=== PATIENT | female | born 1960 | race Caucasian/White ===

== ENCOUNTER 2017-03-31 20:16 | Inpatient (IN) ==
--- NOTE | 2017-03-31 20:21 | Emergency Department Note ---
Disposition Clinical Impression: Femur fracture Disposition: Admitted As Inpatient Condition: Fair General Adult HPI - General Chief complaint: ED Fall Stated complaint: knee pain Time Seen by Provider: 03/31/17 20:19 - Related Data Home Medications Medication Instructions Recorded Confirmed Citalopram [CeleXA] 20 mg PO QPM 01/05/15 03/31/17 Ondansetron HCl [Zofran] 4 mg PO Q4-6H PRN 01/05/15 03/31/17 Oxycodone HCl 10 mg PO Q4-6H PRN 01/05/15 03/31/17 Clopidogrel [Plavix] 75 mg PO QAM 02/19/15 03/31/17 Gabapentin [Neurontin] 600 mg PO TID 02/19/15 03/31/17 Tizanidine [Zanaflex] 4 mg PO Q8H 02/19/15 03/31/17 Zolpidem [Ambien] 10 mg PO HS 03/31/17 03/31/17 metFORMIN [Glucophage] 500 mg PO BIDWM 03/31/17 03/31/17 Allergies Allergy/AdvReac Type Severity Reaction Status Date / Time No Known Allergies Allergy Verified 04/01/17 01:33 EDT Past Medical History - Past Medical History Medical history: Reports: diabetes, myocardial infarction, hypertension Surgical history: Reports: cholecystectomy, knee replacement, angioplasty/stent , other Psychiatric history: Reports: anxiety, depression - Social History Smoking Status: Never smoker Smokeless Tobacco Status: No Alcohol use: Reports: none Drug use: Reports: none Course Vital Signs Temperature 98.7 F 03/31/17 20:20 Pulse Rate 85 03/31/17 20:20 Respiratory Rate 19 03/31/17 20:20 Blood Pressure 185/103 03/31/17 20:20 O2 Sat by Pulse Oximetry 100 03/31/17 20:20 Temperature 98.3 F 04/01/17 06:38 Pulse Rate 87 04/01/17 06:38 Respiratory Rate 16 04/01/17 06:38 Blood Pressure 126/78 04/01/17 06:38 O2 Sat by Pulse Oximetry 98 04/01/17 06:38 Oxygen Delivery Oxygen Delivery Room Air Medical Decision Making - Lab Data Result diagrams: 04/01/17 01:01 EST 04/01/17 01:01 EST Lab Results 03/31/17 Range/Units 22:34 PT 11.5 (9.4-12.1) Seconds INR 1.1 Attestation Statement - Attestation Attestation: I examined this patient and my medical decision-making was reviewed with the Resident Physician. I agree with the documented findings, disposition and treatment plan as described except to the extent set forth below. [id number] time provided Patient arrives by EMS. She sustained a mechanical fall. She now complains of left knee pain. She is uncomfortable appearing on exam 21:33: Knee image sent to the orthopedist nutrition consultant per his request. He recommends admission to the medicine service with orthopedic consultation.
--- NOTE | 2017-03-31 20:39 | Emergency Department Note ---
Disposition Clinical Impression: Femur fracture Qualifiers: Encounter type: initial encounter Femur location: distal Fracture type: closed Fracture morphology: unspecified fracture morphology Laterality: left Qualified Code(s): S72.402A - Unspecified fracture of lower end of left femur, initial encounter for closed fracture Disposition: Admitted As Inpatient Condition: Fair Referrals: Nikhil Felix DO [Primary Care Provider] - Forms: ED Satisfaction Letter Time of Disposition: 22:11 General Adult HPI - General Chief complaint: ED Fall Stated complaint: knee pain Time Seen by Provider: 03/31/17 20:19 Source: patient, EMS Mode of arrival: EMS Limitations: no limitations Nursing Notes Reviewed: Yes Vital Signs Reviewed: Yes - History of Present Illness HPI Narrative: 56-year-old female presents to the emergency department via EMS after a fall. This was a witnessed fall. Her shoes got stuck on a flat surface and she fell forward twisting her left knee and landing on the left side of her body. She did not loose consciousness. She did not hit her head. Patient denies any dizziness, chest pain, shortness of breath. Her left lower extremity is externally rotated and shortened. She states she has pain from mid left femur down to midcalf. She denies any other trauma or pain at this time. She does state she had a total knee replacement on the left side in 1993. Pain Scale: 8 - Related Data Home Medications Medication Instructions Recorded Confirmed Aspirin Enteric Coated [Aspirin EC] 81 mg PO QAM 01/05/15 01/05/15 Citalopram [CeleXA] 20 mg PO QPM 01/05/15 01/05/15 Clopidogrel [Plavix] 75 mg PO QAM 01/05/15 01/05/15 Gabapentin [Neurontin] 600 mg PO TID 01/05/15 01/05/15 Metoprolol Succinate [Toprol Xl] 75 mg PO BID 01/05/15 01/05/15 Nitroglycerin [Nitrostat] 0.4 mg SL AD 01/05/15 01/05/15 Omeprazole [PriLOSEC] 20 mg PO QAM 01/05/15 01/05/15 Ondansetron HCl [Zofran] 4 mg PO Q4-6H PRN 01/05/15 01/05/15 Oxycodone HCl 10 mg PO Q4-6H PRN 01/05/15 01/05/15 Pantoprazole Sodium [Protonix] 40 mg PO QAM 01/05/15 01/05/15 Tizanidine [Zanaflex] 4 mg PO Q8H 01/05/15 01/05/15 Trazodone HCl 150 mg PO HS 01/05/15 01/05/15 Aspirin Enteric Coated [Aspirin EC] 81 mg PO QAM 02/19/15 02/19/15 Clopidogrel [Plavix] 75 mg PO QAM 02/19/15 02/19/15 Gabapentin [Neurontin] 600 mg PO TID 02/19/15 02/19/15 Nitroglycerin [Nitrostat] 0.4 mg SL AD PRN 02/19/15 02/19/15 Ondansetron [Zofran] 4 mg PO Q4-6H PRN 02/19/15 02/19/15 Oxycodone HCl/Acetaminophen 1 - 2 each PO Q12H PRN 02/19/15 02/19/15 [Percocet 5-325 mg Tablet] Pantoprazole Sodium 40 mg PO QAM 02/19/15 02/19/15 Simvastatin [Zocor] 40 mg PO QPM 02/19/15 02/19/15 Tizanidine [Zanaflex] 4 mg PO Q8H 02/19/15 02/19/15 traZODone [TraZODone] 150 mg PO 02/19/15 02/19/15 Previous Rx's Medication Instructions Recorded Promethazine [Phenergan] 25 mg PO Q6HR PRN #30 tablet 01/07/15 Allergies Allergy/AdvReac Type Severity Reaction Status Date / Time amitriptyline Allergy Seizure Verified 01/05/15 14:51 bupropion [From Wellbutrin] Allergy Seizure Verified 01/05/15 14:51 Penicillins Allergy Itching Verified 01/05/15 14:51 tramadol Allergy Seizure Verified 01/05/15 14:51 All systems ED: reviewed and negative except as stated. Constitutional: Denies: fever, chills, weakness Eyes: Reports: as per HPI ENT ED: Reports: as per HPI Cardiovascular: Denies: chest pain, palpitations, dyspnea on exertion Respiratory: Denies: cough, dyspnea, wheezes Gastrointestinal: Denies: abdominal pain, nausea, vomiting Genitourinary: Reports: as per HPI Musculoskeletal: Reports: other (Left knee and left mid thigh pain) Integumentary: Reports: abrasion (Left knee, superficial) Neurological: Reports: as per HPI Psychiatric: Reports: as per HPI Endocrine: Reports: as per HPI Hematological/Lymphatic: Reports: as per HPI Allergic/Immunologic: Reports: as per HPI Past Medical History - Past Medical History Attestation: Yes The following information was validated with the patient. Medical history: Reports: diabetes, myocardial infarction, hypertension Surgical history: Reports: cholecystectomy, knee replacement, angioplasty/stent , other Psychiatric history: Reports: anxiety, depression WRITER history: Reports: bilateral tubal ligation - Social History Smoking Status: Never smoker Smokeless Tobacco Status: No Alcohol use: Reports: none Drug use: Reports: none Physical Exam - General Limitations: no limitations General appearance: alert, in no apparent distress - Head Head exam: atraumatic, normocephalic, normal inspection - Eye Eye exam: Present: normal appearance. Absent: scleral icterus, conjunctival injection - Neck Neck exam: Present: normal inspection, full ROM. Absent: tenderness - Chest Chest inspection: Present: normal inspection, symmetric chest wall rise. Absent : tenderness, rash - Respiratory Respiratory exam: Present: normal lung sounds bilaterally. Absent: respiratory distress, wheezes - Cardiovascular Cardiovascular exam: Present: regular rate, normal rhythm, normal heart sounds - Abdominal Exam Abdominal exam: Present: soft, Non-Tender. Absent: distention, guarding, rebound - Extremities Exam Extremities exam: Present: other (Left lower extremity is externally rotated and shortened. Patient has tenderness over the mid femoral area and over the greater trochanter. Patient also has severe tenderness throughout the entire left knee. Sensation intact bilateral lower extremities. Distal pulses 2+ bilateral lower extremities. Muscle strength unable to assess due to pain. No crepitus noted. Superficial abrasion noted over the left knee.) - Neurological Exam Neurological exam: Present: alert, oriented X3 - Psychiatric Psychiatric exam: Present: normal affect, normal mood - Skin Skin exam: Present: warm, normal color Course Course Narrative: 56-year-old female presenting with fall and left lower extremity pain. Patient has an externally rotated and shortened left lower extremity. Pain to palpation on greater trochanter of the left hip along with mid femur and the entire left knee. We will obtain plain films and her eye pain control at this time. Disposition pending results. Concern for dislocation or fracture at this time. Patient alert and oriented 3 in the room and agrees to this plan. Patient's vital signs are stable at this time. - Reevaluation(s) Reevaluation #1: Patient's x-ray shows a distal femur fracture 100% displaced. Spoke to the orthopedic physician special effects person who agrees to be consult it on the patient. We will admit the patient to hospitalist service with consult to orthopedics for surgery tomorrow. We will obtain basic lab work for admission. Patient's leg will be reduced and then splinted in the emergency department. Pain control at this time. Patient is alert and oriented 3 in the room with stable vital signs at this time. She agrees with the plan. Time: 21:56 Reevaluation #2: Dr. Galvan the hospitalist accepts the patient at this time. Patient's alert and oriented 3 and room stable vital signs. Friends are at bedside. Time: 22:10 Vital Signs Temperature 98.7 F 03/31/17 20:20 Pulse Rate 85 03/31/17 20:20 Respiratory Rate 19 03/31/17 20:20 Blood Pressure 185/103 03/31/17 20:20 O2 Sat by Pulse Oximetry 100 03/31/17 20:20 Temperature 98.7 F 03/31/17 20:20 Pulse Rate 85 03/31/17 20:20 Respiratory Rate 19 03/31/17 20:20 Blood Pressure 185/103 03/31/17 20:20 O2 Sat by Pulse Oximetry 100 03/31/17 20:20 Oxygen Delivery Oxygen Delivery Room Air Procedures - Orthopedic Fracture Reduction Fracture #1 Consent Obtained: verbal consent Time Out Performed: Yes Side: left Fracture Reduction Location: femur ASA Classification: CLASS II-Mild systemic disease Analgesia: other (IV analgesia) Technique: traction/counter-traction, traction splint Post Reduction X-rays Demonstrate: acceptable reduction Post-reduction neuro exam: intact Post-reduction vascular exam: intact Splint Applied: Yes Patient Tolerated Procedure: well Additional Comments: Custom made splint applied by EDT
[2017-03-31] MEDS ORDERED: *HR* Morphine 2 MG/ML SYRINGE IVP ONE (20:40)
[2017-03-31] MEDS ORDERED: *HR* HYDROmorphone (PF) 1 MG/ML SYRINGE IVP ONE ×2 (21:21→21:57)
[2017-03-31] MEDS ORDERED: Ondansetron 4 MG/2 ML VIAL IVP ONE (21:56)
[2017-03-31 22:45] LABS: INR 1.1; Prothrombin Time 11.5 Seconds (9.4-12.1)
[2017-03-31] MEDS ORDERED: D5% in Water 1,000 ML IVC PRN (23:51)
[2017-03-31] MEDS ORDERED: *HR* Dextrose 50 % in Water (Syg) 50 ML SYRINGE IVP PRN (23:51)
[2017-03-31] MEDS ORDERED: Dextrose Gel 15 GM PO PRN ×2 (23:51)
[2017-03-31] MEDS: Insulin LISPRO 300 UNITS/3 ML VIAL SQ SCH (23:58)
[2017-04-01] MEDS: *HR* HYDROmorphone (PF) 1 MG/ML SYRINGE IVP PRN ×6 (00:32→20:28)
[2017-04-01 01:05] LABS: Basophils % 0.2 %; Eosinophils # 0.1 K/mcL (0.0-0.6); Eosinophils % 0.4 %; Hematocrit 34.2 % (35.3-44.9); Hemoglobin 11.1 g/dL (11.5-15.4); Immature Granulocytes % 0.6 % (0-4); Lymphocytes # 1.3 K/mcL (0.6-4.6); Lymphocytes % 7.7 %; Mean Corpuscular HGB Conc 32.5 g/dL (31.6-35.5); Mean Corpuscular Hemoglobin 27.8 pg (28.0-33.3); Mean Corpuscular Volume 85.5 fL (83.0-100.0); Mean Platelet Volume 9.4 fL (9.4-12.4); Monocytes # 0.7 K/mcL (0.0-1.3); Monocytes % 4.2 %; Neutrophils # 15.1 K/mcL (1.6-8.9); Platelet Count 344 K/mcL (140-400); Red Cell Distribution Width 14.4 % (11.5-14.5); Segmented Neutrophils % 86.9 %
[2017-04-01] MEDS ORDERED: D5% in Water 1,000 ML IVC PRN (01:16)
[2017-04-01] MEDS ORDERED: Acetaminophen 325 MG TABLET PO PRN (01:16)
[2017-04-01] MEDS ORDERED: Naloxone 0.4 MG/ML INJ IVP PRN (01:16)
[2017-04-01] MEDS ORDERED: Ondansetron 4 MG/2 ML VIAL IVP PRN (01:16)
[2017-04-01] MEDS ORDERED: Dextrose Gel 15 GM PO PRN ×2 (01:16)
[2017-04-01] MEDS ORDERED: *HR* Dextrose 50 % in Water (Syg) 50 ML SYRINGE IVP PRN (01:16)
[2017-04-01 01:19] LABS: BUN/Creatinine Ratio 20 (6-26); Blood Urea Nitrogen 15 mg/dL (7-20); Calcium 8.6 mg/dL (8.6-10.8); Carbon Dioxide 23 mEq/L (19-29); Chloride 105 mEq/L (98-109); Glucose 172 mg/dL (70-99); Osmolality,Calculated 289 (280-300); Potassium 4.1 mEq/L (3.5-4.5); Sodium 137 mEq/L (136-145); eGFR For African Americans > 60 (> 60); eGFR For Non-African Americans > 60 (> 60)
[2017-04-01] MEDS ORDERED: tiZANidine 4 MG TABLET PO PRN (01:22)
[2017-04-01] MEDS: 0.9 % Sodium Chloride 1,000 ML IVC SCH ×2 (01:59→14:52)
[2017-04-01] MEDS: *HR* OxyCODONE Immed Rel 5 MG TABLET PO PRN ×4 (02:00→22:48)
--- NOTE | 2017-04-01 02:22 | Internal Med History&Physical ---
Date of Encounter: 04/01/17 Time of Encounter: 01:00 Assessment and Plan (1) Femur fracture Current visit: Yes Status: Acute 1. Orthopedics already consulted from ER. 2. Pain control with oral and IV opiates as necessary to control pain at tolerable levels. 3. I recommend obtaining ECHO and possibly consulting Cardiology prior to surgery, especially given her CAD and recent history of exertional dyspnea. Qualifiers: Encounter type: initial encounter Femur location: distal Fracture type: closed Fracture morphology: unspecified fracture morphology Laterality: left Qualified Code(s): S72.402A - Unspecified fracture of lower end of left femur, initial encounter for closed fracture (2) CAD (coronary artery disease) Current visit: No Status: Chronic 1. Will order EKG, ECHO, and telemetry. 2. If ECHO shows any LV wall motion abnormality and/or dysfunction, I recommend consulting cardiology to evaluate patient prior to proceeding with surgery. 3. Continue home meds as appropriate. Qualifiers: Coronary Disease-Associated Artery/Lesion type: [place] artery [place] vs. transplanted heart: [place] heart Associated angina: angina presence unspecified Qualified Code(s): I25.10 - Atherosclerotic heart disease of [place] coronary artery without angina pectoris (3) Diabetes Current visit: No Status: Chronic 1. Hold oral home meds. 2. Will order SSI and monitor glucose. 3. Adjust insulin as necessary. 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 Heparin SQ. Internal Medicine - H&P: HPI Chief complaint: femur fracture Admitted From: Emergency Dept Plans for Post Hospital Care: Home History of present illness: Ms. Mims is a 56 year old female who presents to ER after having sustained a mechanical fall at home and landing on her knee. She was found to have evidence of a distal femur fracture. She was admitted to the hospitalist service with a consult to orthopedics. Upon my assessment of the patient, she is lying in bed with some mild pain to her leg. She has already received some IV narcotic medication with relief of her pain. I reviewed her prior medical history, and it is pertinent for diabetes and significant coronary artery disease. She had a heart catheterization 2 years ago noting patent stents in her coronary arteries. However, she does give a history of some rare exertional dyspnea. She denies any chest pain or heaviness. She last saw her field merchandiser about 2 years ago. Unfortunately, ER did not obtain an EKG or chest x-ray for review. Therefore, I 'm ordering those now and I will order an ECHO for the morning before we would consider proceeding with surgery. She also may need cardiology consultation as well. Nonetheless, she does need surgery soon. Past Med Surg Social Fam HX - Past Medical History Attestation: Yes The following information was validated with the patient. Source: patient, old records reviewed Medical history: diabetes, myocardial infarction, hypertension Psychiatric history: anxiety, depression - Past Surgical History Surgical History: cholecystectomy, knee replacement, angioplasty/stent, other - Social History Smoking Status: Never smoker Smokeless Tobacco Status: No Alcohol use: none Drug use: none Activity Level: Uses cane/walker - Family History Mother Living Status: Age at : 67 Cause of : CHF Hx Family Cardiac Disorders: Yes Hx Family Respiratory Disorders: Yes Hx Family Cancer: Yes Father Living Status: Age at : 72 Hx Family Cardiac Disorders: Yes Hx Family Respiratory Disorders: Yes Internal Medicine - H&P: Meds Citalopram [CeleXA] 20 mg PO QPM 01/05/15 [History] Ondansetron HCl [Zofran] 4 mg PO Q4-6H PRN 01/05/15 [History] Oxycodone HCl 10 mg PO Q4-6H PRN 01/05/15 [History] Clopidogrel [Plavix] 75 mg PO QAM 02/19/15 [History] Gabapentin [Neurontin] 600 mg PO TID 02/19/15 [History] Tizanidine [Zanaflex] 4 mg PO Q8H 02/19/15 [History] Zolpidem [Ambien] 10 mg PO HS 03/31/17 [History] metFORMIN [Glucophage] 500 mg PO BIDWM 03/31/17 [History] 3 Allergy/AdvReac Type Severity Reaction Status Date / Time No Known Allergies Allergy Verified 04/01/17 01:33 EDT - Constitutional Constitutional: no chills, no fever(s), no night sweats - EENT Eyes: no blurry vision, no change in vision Ears: no ear pain, no tinnitus Nose, mouth and throat: no nasal congestion, no sinus pressure, no sore throat - Cardiovascular Cardiovascular ROS IM: dyspnea on exertion, no chest pain, no diaphoresis, no dyspnea, no lightheadedness, no orthopnea, no paroxysmal nocturnal dyspnea, no syncope - Respiratory Respiratory: no cough, no dyspnea, no hemoptysis, no chest congestion - Gastrointestinal Gastrointestinal: no abdominal pain, no diarrhea, no hematemesis, no hematochezia, no melena, no nausea, no vomiting - Genitourinary Genitourinary: no dysuria, no flank pain, no hematuria - Musculoskeletal Musculoskeletal ROS IM: no back pain - Integumentary Integumentary IM: no rash, no jaundice - Neurological Neurological ROS: no focal weakness, no frequent falls, no headache(s) Additional comments: chronic neuropathy of her feet/legs - Psychiatric Psychiatric: no anxiety, no depression - Endocrine Endocrine IM: no polydipsia, no polyuria - Hematologic/Lymphatic Hematologic/Lymphatic: no easy bruising - Allergic/Immunologic Allergic/Immunologic: no wheezing, no GI upset with certain foods - Constitutional Vitals: Temp Pulse Resp BP Pulse Ox 98.3 F 91 18 145/81 94 03/31/17 23:33 03/31/17 23:33 03/31/17 23:33 03/31/17 23:33 03/31/17 23:33 General appearance: Present: cooperative, mild distress, A&O X 3, pleasant, answers questions appropriately - Head Head exam: Present: atraumatic, normal inspection - Expanded Head Exam Head exam expanded: Absent: abrasion, contusion, general tenderness - Eye Eye exam: Present: EOMI, PERRL. Absent: scleral icterus Pupils: Present: normal accommodation - ENT ENT exam: Present: mucous membranes dry, normal exam - Neck Neck exam general surgery: Present: full ROM, supple. Absent: tenderness, nuchal rigidity - Respiratory Respiratory exam: Present: CTAB. Absent: chest wall tenderness, rales, respiratory distress, rhonchi, wheezes - Cardiovascular Cardiovascular exam: Present: RRR, +S1, +S2. Absent: diastolic murmur, systolic murmur - GI/Abdominal GI/Abdominal exam: Present: normal bowel sounds, soft. Absent: hepatomegaly, mass, splenomegaly, tenderness - Extremities Exam Extremities exam: Present: normal capillary refill, tenderness (left leg/femur) , warm, radial pulses palpable and symmetrical. Absent: calf tenderness, pedal edema - Back Exam Back exam: Absent: CVA tenderness (L), CVA tenderness (R) - Neurological Exam Neurological exam: Present: alert, CN II-XII intact, oriented X3 Additional comments: + neuropathy feet/legs - Psychiatric Psychiatric exam: Present: normal affect, normal mood - Skin Skin exam: Present: dry, warm. Absent: rash Internal Med - H&P Results - Labs CBC & Chem 7: 04/01/17 01:01 EST 04/01/17 01:01 EST Labs: Short CBC 04/01/17 Range/Units 01:01 EST WBC 17.4 H (4.3-11.1) K/mcL Hgb 11.1 L (11.5-15.4) g/dL Hct 34.2 L (35.3-44.9) % Plt Count 344 (140-400) K/mcL Neutrophils # 15.1 H (1.6-8.9) K/mcL BMP 04/01/17 01:01 EST Sodium 137 Potassium 4.1 Chloride 105 Carbon Dioxide 23 BUN 15 Creatinine 0.75 Glucose 172 H Calcium 8.6 - Diagnostic Studies Other Images Status: image reviewed by me (left knee/femur xray -- distal femur fracture)
[2017-04-01] MEDS: *HR* Heparin 5,000 UNIT/ML VIAL SQ SCH ×3 (05:41→22:48)
--- NOTE | 2017-04-01 08:04 | Orthopedic Consult Note ---
Date of Encounter: 04/01/17 Time of Encounter: 08:01 Assessment and Plan (1) Femur fracture Current Visit: Yes Status: Acute Left supracondylar periprosthetic distal femur fracture. I did explain the diagnosis to the patient in great detail. My recommendation was to proceed with open reduction and internal fixation of the left femur. The risks discussed included but were not limited to stiffness, bleeding, infection, blood clots, damage to neurovascular structures, tendons, ligaments, and bone. Also discussed was the risk of continued symptoms and possible need for further procedures. I did discuss the anesthesia risks including stroke, heart attack, and . I did discuss the reasonable, foreseeable postoperative course with the patient. I discussed the case with my partner Dr. Schroeder will plan on fixing this fracture tomorrow. I do note that the hospitalist is getting an echo today and may consult cardiology for cardiac clearance. Qualifiers: Encounter type: initial encounter Femur location: distal Fracture type: closed Fracture morphology: unspecified fracture morphology Laterality: left Qualified Code(s): S72.402A - Unspecified fracture of lower end of left femur, initial encounter for closed fracture History of Present Illness HPI: Ms. Mims is a 56 year old female who is a few years out from left total knee arthroplasty by my partner Dr. Schroeder. She has done very well from this. She was admitted last night to the hospitalist after non-syncopal fall resulted in a periprosthetic distal femur fracture. I was consulted to assist in the evaluation and management of this patient. The patient has isolated pain to the left knee. She denies any headaches, neck pain, chest pain, abdominal pain , bilateral upper extremity pain, and right lower extremity pain. No numbness, tingling, or any other associated signs or symptoms. She does say there is some pressure over the heel related to the splint she is placed in back in the emergency department. Pain of the left knee is worse with movement and better with rest. No other modifying factors. Past Med Surg Social Fam HX - Past Medical History Medical history: diabetes, myocardial infarction, hypertension Psychiatric history: anxiety, depression - Past Surgical History Surgical History: cholecystectomy, knee replacement, angioplasty/stent, other - Social History Smoking Status: Never smoker Smokeless Tobacco Status: No Alcohol use: none Drug use: none - Family History Mother Living Status: Age at : 67 Cause of : CHF Hx Family Cardiac Disorders: Yes Hx Family Respiratory Disorders: Yes Hx Family Cancer: Yes Father Living Status: Age at : 72 Hx Family Cardiac Disorders: Yes Hx Family Respiratory Disorders: Yes Medications and Allergies Citalopram [CeleXA] 20 mg PO QPM 01/05/15 [History] Ondansetron HCl [Zofran] 4 mg PO Q4-6H PRN 01/05/15 [History] Oxycodone HCl 10 mg PO Q4-6H PRN 01/05/15 [History] Clopidogrel [Plavix] 75 mg PO QAM 02/19/15 [History] Gabapentin [Neurontin] 600 mg PO TID 02/19/15 [History] Tizanidine [Zanaflex] 4 mg PO Q8H 02/19/15 [History] Zolpidem [Ambien] 10 mg PO HS 03/31/17 [History] metFORMIN [Glucophage] 500 mg PO BIDWM 03/31/17 [History] 3 Allergy/AdvReac Type Severity Reaction Status Date / Time No Known Allergies Allergy Verified 04/01/17 01:33 EDT All Systems Reviewed: Constitutional and musculoskeletal systems were reviewed and are negative unless otherwise stated in history of present illness. Physical Exam - Constitutional Vitals: Temp Pulse Resp BP Pulse Ox 98.3 F 87 16 126/78 98 04/01/17 06:38 04/01/17 06:38 04/01/17 06:38 04/01/17 06:38 04/01/17 06:38 Constitutional -Vitals reviewed -The patient is well developed and well nourished. -Mood is pleasant. -The patient is well groomed. Psychiatric -The patient is fully alert and oriented x 3. Respiratory: -Respiratory effort normal Abdomen: -Soft abdomen -Non tender -Non distended: Left upper extremity: -No deformities. The overlying skin is intact. No obvious signs of acute trauma. -No tenderness to palpation throughout. -No significant pain with passive motion of the shoulder, elbow, wrist, and fingers within the limits of the bed. -Able to make an "OK" sign, cross the index and long fingers, and extend the thumb. -Sensation grossly intact to light touch throughout the median, radial, and ulnar distributions. -Radial pulse is present; Fingers have good capillary refill. Right upper extremity: -No deformities. The overlying skin is intact. No obvious signs of acute trauma. -No tenderness to palpation throughout. -No significant pain with passive motion of the shoulder, elbow, wrist, and fingers within the limits of the bed. -Able to make an "OK" sign, cross the index and long fingers, and extend the thumb. -Sensation grossly intact to light touch throughout the median, radial, and ulnar distributions. -Radial pulse is present; Fingers have good capillary refill. Left lower extremity: -Long-leg posterior slab and sugar tong splint in place -This has not yet taken down -She can grossly flex and extend the toes and the toes are sensate and well- perfused. Right lower extremity: -No deformities. The overlying skin is intact. No obvious signs of acute trauma. -No tenderness to palpation throughout. -No pain with passive motion of the hip, knee, ankle, and toes within the limits of the bed. -No pain with axial loading of the thigh. -Able to dorsiflex and plantarflex the ankle and toes. -Sensation is grossly intact to light touch throughout the sural, saphenous, superficial peroneal, and deep peroneal distributions. -Toes have good capillary refill. Diagnostic Imaging: I did personally review and interpret the x-rays of the left hip and knee which show a supracondylar periprosthetic distal femur fracture with a prosthesis that is solidly fixed. Results - Labs Result Diagrams: 04/01/17: EST 04/01/17: EST Labs: Abnormal lab results WBC 17.4 K/mcL (4.3-11.1) H 04/01/17: EST Hgb 11.1 g/dL (11.5-15.4) L 04/01/17: EST Hct 34.2 % (35.3-44.9) L 04/01/17: EST MCH 27.8 pg (28.0-33.3) L 04/01/17: EST Neutrophils # 15.1 K/mcL (1.6-8.9) H 04/01/17: EST Glucose 172 mg/dL (70-99) H 11/05/17 01:01 EST POC Glucose 187 (58-89) H 04/01/17 07:29 H & H 04/01/17 Range/Units 01:01 EST Hgb 11.1 L (11.5-15.4) g/dL Hct 34.2 L (35.3-44.9) % All other labs normal. Consult Discharge Plan - Plan Referrals: Nikhil Felix DO [Primary Care Provider] -
[2017-04-01] MEDS: Gabapentin 300 MG CAPSULE PO SCH ×3 (08:39→20:27)
[2017-04-01] MEDS: Insulin LISPRO 300 UNITS/3 ML VIAL SQ SCH ×4 (08:41→20:28)
--- NOTE | 2017-04-01 10:50 | Event Note ---
Date of Encounter: 04/01/17 Time of Encounter: 10:15 Patient is awake and alert. Pain improved in left lower extremity after her brace was removed. She does report shortness of breath prior to her fall and was unable to climb even 1 flight of stairs without developing shortness of breath. She denies any pedal edema. She does describe orthopnea at baseline. 2-D echocardiogram ordered. We will also consult cardiology for preoperative evaluation. I suspect patient does have high risk for complications from her prior cardiac history due to surgery but she does require surgery for her femur fracture.
--- NOTE | 2017-04-01 11:53 | Cardiology Consult Note ---
Date of Encounter: 04/01/17 Time of Encounter: 11:30 Assessment and Plan (1) Preop cardiovascular exam Current Visit: Yes Status: Acute Per cardiology: -Pre-op exam for orthopedic surgery under general anesthesia. -Known history of CAD. Denies chest pain. -Reports increased shortness of breath. States is short of breath with any exertion. -Fairly inactive at home, reports takes her 4 hours to do dishes due to shortness of breath. -Last LHC 12/2014 with 30% stenosis left main, proximal LAD with patent stents, 40% proximal LAD, 40% mid LAD, 60% diagonal 1, mid circumflex with patent stents , OM1 with patent stents, 40% proximal Circumlex, 60% mid circumflex, 40% proximal RCA, 20% mid RCA, 50% right PDA. -Last TTE 12/2014 with LVEF 70%, moderate diastolic dysfunction, mild mitral regurgitation, all wall segments with normal motion. -Echo pending, ordered by primary service. Currently being completed. -ECG pending, ordered by primary service. Has not been completed yet. -Further recommendations pending ECG and echocardiogram. (2) CAD (coronary artery disease) Current Visit: No Status: Chronic Per cardiology: -Known CAD with LHC as above. -Previous LHC and TTE as above. -On plavix and statin in outpatient setting. -Patient states she does not take ASA or beta agus. -Patient states beta agus dropped her BP, so she does not take this medication. -Echo pending. -Will restart home statin. Qualifiers: Coronary Disease-Associated Artery/Lesion type: [place] artery [place] vs. transplanted heart: [place] heart Associated angina: angina presence unspecified Qualified Code(s): I25.10 - Atherosclerotic heart disease of [place] coronary artery without angina pectoris Discussion w patient/family: The assessment and plan as outlined above was discussed with the patient and/or family members who expressed understanding and agreement. All questions were answered. Thank you for involving us in the care of your patient. Please call with any questions. Discussed and reviewed with . History of Present Illness Consult date: 04/01/17 Requesting physician: Octaviano Lovett Consult reason: pre-op Chief complaint: fall History of present illness: Ms. Mims is a 56 year old female with a relevant past medical history of DM, [place], CAD s/p PCI, hyperlipidemia, anxiety, depression, osteoarthritis. Patient presented to [facility] after mechanica fall. Patient states she was not dizzy, lightheaded, and did not lose consciousness. Patient states her leg twisted and she just fell. Cardiology has been asked to see and evaluate patient for pre- operative risk stratification. Patient denies chest pain. Patient reports increased shortness of breath. Patient states fatigue is about baseline. Patient reports the most active thing she does at home is laundry and she reports worsening shortness of breath while doing laundry. Patient states she also does dishes at home and it takes her 4 hours to do dishes due to needing frequent rest periods due to shortness of breath. Patient reports any exertion causes her to be short of breath. Past Med Surg Social Fam HX - Past Medical History Attestation: Yes The following information was validated with the patient. Source: patient, old records reviewed Medical history: diabetes, myocardial infarction, hypertension Psychiatric history: anxiety, depression - Past Surgical History Surgical History: cholecystectomy, knee replacement, angioplasty/stent, other - Social History Smoking Status: Never smoker Smokeless Tobacco Status: No Alcohol use: none Drug use: none - Family History Mother Living Status: Age at : 67 Cause of : CHF Hx Family Cardiac Disorders: Yes Hx Family Respiratory Disorders: Yes Hx Family Cancer: Yes Father Living Status: Age at : 72 Hx Family Cardiac Disorders: Yes Hx Family Respiratory Disorders: Yes Medications and Allergies Citalopram [CeleXA] 20 mg PO QPM 01/05/15 [History] Ondansetron HCl [Zofran] 4 mg PO Q4-6H PRN 01/05/15 [History] Clopidogrel [Plavix] 75 mg PO QAM 02/19/15 [History] Gabapentin [Neurontin] 600 mg PO TID 02/19/15 [History] Tizanidine [Zanaflex] 4 mg PO Q8H 02/19/15 [History] Zolpidem [Ambien] 10 mg PO HS 03/31/17 [History] metFORMIN [Glucophage] 500 mg PO BIDWM 03/31/17 [History] Albuterol Sulfate [Proair Hfa] 2 puff IH Q4H PRN 04/01/17 [History] Aspirin Enteric Coated [Aspirin EC] 81 mg PO DAILY 04/01/17 [History] Exenatide Microspheres [Bydureon Pen] 2 mg SQ QWEEK 04/01/17 [History] Nitroglycerin [Nitrostat] 0.4 mg SL Q5M PRN 04/01/17 [History] OxyCODONE/APAP 10/325 [Percocet 10/325 MG] 1 each PO Q6HR PRN 04/01/17 [History] Ranitidine HCl [Zantac] 150 mg PO HS 04/01/17 [History] Simvastatin [Zocor] 40 mg PO HS 04/01/17 [History] 3 Allergy/AdvReac Type Severity Reaction Status Date / Time No Known Allergies Allergy Verified 04/01/17 01:33 EDT All Systems Review: A 10-system review of systems was performed and is negative for pertinent findings except as documented above in the HPI. - Cardiovascular Cardiovascular: as per HPI, dyspnea on exertion - Musculoskeletal Musculoskeletal: other (left leg pain) Physical Examination Vital Signs Temperature 98.7 F 03/31/17 20:20 Pulse Rate 85 03/31/17 20:20 Respiratory Rate 19 03/31/17 20:20 Blood Pressure 185/103 03/31/17 20:20 O2 Sat by Pulse Oximetry 100 03/31/17 20:20 Temperature 98.3 F 04/01/17 06:38 Pulse Rate 87 04/01/17 06:38 Respiratory Rate 16 04/01/17 06:38 Blood Pressure 126/78 04/01/17 06:38 O2 Sat by Pulse Oximetry 98 04/01/17 06:38 Oxygen Delivery Oxygen Delivery Room Air General: Conversant, No Apparent Distress HEENT: Atraumatic, Normocephaly, Mucus Membranes Moist Neck: No JVD, Normal carotid pulses Cardiac: Reg Rate and Rhythm, Normal S1 and S2, No Murmur Lungs: Normal Breath Sounds, No Wheeze, Rales, Rhonchi Neuro: Alert and responsive, No focal deficits noted Abdomen: Soft, Non-Tender Skin: No rashes noted on visualized skin Musculoskeletal: No Chest Wall Tenderness, Other (Left leg in brace. ) Extremities: No Clubbing, No Cyanosis, Normal Pulses, Other (Mild bilateral pedal edema noted, non-pitting. ) Results 04/01/17 01:01 EST 04/01/17 01:01 EST Lab Results Impressions Hip X-Ray 03/31/17 20:20 IMPRESSION: No definite acute osseous abnormality. D/ / 03/31/2017 22:15:27 Chintan Juarez MD / Farrah Quintana Interpreting Provider: Chintan Juarez MD Knee X-Ray 03/31/17 20:20 IMPRESSION: Distal femur fracture as above. D/ / Rachna Street MD / Rachna Street MD Interpreting Provider: Rachna Street MD Knee X-Ray 03/31/17 21:54 IMPRESSION: Unchanged alignment of an acute displaced periprosthetic fracture of the distal left femur. D/ / Larry Stewart MD / Larry Stewart MD Interpreting Provider: Larry Stewart MD Chest X-Ray 04/01/17 04:24 IMPRESSION: Cardiomegaly with right perihilar airspace disease that may represent infiltrate or atelectasis D/ / Dayne Godoy MD / Dayne Godoy MD Interpreting Provider: Dayne Godoy MD Active Medications Acetaminophen (Tylenol) 650 mg PO Q6HR PRN PRN Reason: Mild Pain (1-3) Stop: 10/01/17 01:17 Clopidogrel Bisulfate (Plavix) 75 mg PO [facility] Stop: 10/01/17 09:01 Last Admin: 04/01/17 08:39 Dose: 75 mg Dextrose/Water (Dextrose 50% (Syg)) 25 ml IVP AD PRN PRN Reason: Hypoglycemia Stop: 09/30/17 23:52 Dextrose/Water (Dextrose 50% (Syg)) 25 ml IVP AD PRN PRN Reason: Hypoglycemia Stop: 10/01/17 01:17 Gabapentin (Neurontin) 600 mg PO TID [facility] Stop: 10/01/17 09:01 Last Admin: 04/01/17 08:39 Dose: 600 mg Glucagon (Glucagen) 1 mg IM ONCE PRN PRN Reason: Hypoglycemia Stop: 09/30/17 23:52 Glucagon (Glucagen) 1 mg IM ONCE PRN PRN Reason: Hypoglycemia Stop: 10/01/17 01:17 Glucose (Gluctose) 15 gm PO ONCE PRN PRN Reason: Hypoglycemia Stop: 09/30/17 23:52 Glucose (Gluctose) 30 gm PO ONCE PRN PRN Reason: Hypoglycemia Stop: 09/30/17 23:52 Glucose (Gluctose) 15 gm PO ONCE PRN PRN Reason: Hypoglycemia Stop: 10/01/17 01:17 Glucose (Gluctose) 30 gm PO ONCE PRN PRN Reason: Hypoglycemia Stop: 10/01/17 01:17 Heparin Sodium (Porcine) (Heparin) 5,000 unit SQ Q8HCO [facility] Stop: 10/01/17 06:01 Last Admin: 04/01/17 05:41 Dose: 5,000 unit Hydromorphone HCl (Dilaudid) 1 mg IVP Q3H PRN PRN Reason: Severe Pain Stop: 10/01/17 00:03 Last Admin: 04/01/17 09:43 Dose: 1 mg Dextrose (Dextrose 5%) 1,000 mls @ 100 mls/hr IVC .Q10H PRN PRN Reason: HYPOGLYCEMIA Stop: 09/30/17 23:52 Sodium Chloride (0.9 % Sodium Chloride) 1,000 mls @ 75 mls/hr IVC .[id number] [facility] Stop: 10/01/17 01:31 Last Admin: 04/01/17 01:59 EST Dose: 75 mls/hr Dextrose (Dextrose 5%) 1,000 mls @ 100 mls/hr IVC .Q10H PRN PRN Reason: HYPOGLYCEMIA Stop: 10/01/17 01:17 Insulin Human Lispro (Humalog) 0 units SQ TIDAC [facility] PRN Reason: Protocol Stop: 10/01/17 07:31 Last Admin: 04/01/17 08:41 Dose: 4 units Insulin Human Lispro (Humalog) 0 units SQ HS [facility] PRN Reason: Protocol Stop: 09/30/17 23:46 Last Admin: 03/31/17 23:58 Dose: Not Given Naloxone HCl (Narcan) 0.4 mg IVP Q2MIN PRN PRN Reason: Opioid Reversal Stop: 10/01/17 01:17 Ondansetron HCl (Zofran) 4 mg IVP Q8HR PRN PRN Reason: Nausea And Vomiting Stop: 10/01/17 01:17 Oxycodone HCl (Roxicodone) 5 mg PO Q6HR PRN PRN Reason: Moderate Pain Stop: 10/01/17 00:03 Last Admin: 04/01/17 08:39 Dose: 5 mg Tizanidine HCl (Zanaflex) 4 mg PO Q8H PRN PRN Reason: Muscle Spasm Stop: 10/01/17 01:23 Laboratory Tests 04/01/17 04/01/17 01:01 EST 01:01 EST WBC 17.4 H Hgb 11.1 L Creatinine 0.75 - Imaging and Cardiology Chest Xray: report reviewed Echo: pending, report reviewed Cardiac cath: report reviewed - EKG Interpretation EKG results cardiology: other (Telemetry reviewed with average HR noted to be 89 , sinus rhythm. PACs noted.) Consult Discharge Plan - Plan Referrals: Nikhil Felix DO [Primary Care Provider] -
[2017-04-02 04:08] LABS: Basophils % 0.2 %; Eosinophils % 0.3 %; Hematocrit 35.6 % (35.3-44.9); Immature Granulocytes % 0.6 % (0-4); Lymphocytes # 0.7 K/mcL (0.6-4.6); Lymphocytes % 4.6 %; Mean Corpuscular HGB Conc 30.9 g/dL (31.6-35.5); Mean Corpuscular Hemoglobin 27.8 pg (28.0-33.3); Mean Corpuscular Volume 89.9 fL (83.0-100.0); Mean Platelet Volume 9.5 fL (9.4-12.4); Monocytes # 0.7 K/mcL (0.0-1.3); Monocytes % 4.4 %; Neutrophils # 14.2 K/mcL (1.6-8.9); Platelet Count 295 K/mcL (140-400); Red Blood Count 3.96 M/mcL (3.82-4.97); Red Cell Distribution Width 14.6 % (11.5-14.5); Segmented Neutrophils % 89.9 %
[2017-04-02 04:27] LABS: Alanine Aminotransferase 11 Units/L (0-55); Albumin 2.7 g/dL (3.5-5.0); Albumin/Globulin Ratio 0.6 (1.1-2.2); Alkaline Phosphatase 134 Units/L (38-126); Aspartate Amino Transferase 14 Units/L (5-34); BUN/Creatinine Ratio 12 (6-26); Bilirubin,Total 0.5 mg/dL (0.2-1.2); Blood Urea Nitrogen 10 mg/dL (7-20); Calcium 8.5 mg/dL (8.6-10.8); Carbon Dioxide 25 mEq/L (19-29); Chloride 102 mEq/L (98-109); Globulin 4.5 g/dL (2.4-3.5); Glucose 289 mg/dL (70-99); Magnesium 1.7 mg/dL (1.6-2.6); Osmolality,Calculated 286 (280-300); Sodium 133 mEq/L (136-145); Total Protein 7.2 g/dL (6.0-8.3); eGFR For African Americans > 60 (> 60); eGFR For Non-African Americans > 60 (> 60)
[2017-04-02 04:41] LABS: Potassium 5.3 mEq/L (3.5-4.5)
[2017-04-02] MEDS: *HR* Heparin 5,000 UNIT/ML VIAL SQ SCH ×2 (05:45→12:03)
[2017-04-02] MEDS: *HR* OxyCODONE Immed Rel 5 MG TABLET PO PRN ×2 (05:47→14:20)
[2017-04-02] MEDS: 0.9 % Sodium Chloride 1,000 ML IVC SCH (05:49)
--- NOTE | 2017-04-02 07:33 | Orthopedics Progress Note ---
Date of Encounter: 04/02/17 Time of Encounter: 07:32 Subjective Interval history: Patient seen this morning status post fall with displaced left periprosthetic distal femur fracture. Patient presently in a knee immobilizer resting comfortably. Neurovascular intact. X-rays show displaced fracture it appears the femoral component is unaffected and that there is enough room for fixation. Plan is for left femur open reduction internal fixation. We reviewed the risks and benefits as well as recovery. All questions were answered. The patient agreed to this treatment plan and appeared to understand the plan is reviewed. Objective Vital signs: Vital Signs Temp Pulse Resp BP Pulse Ox 04/02/17 04:03 98.1 F 96 19 123/77 98 04/01/17 23:51 98.8 F 88 18 121/75 95 04/01/17 20:31 99.5 F 115 19 120/78 94 04/01/17 15:09 97 04/01/17 14:08 97.8 F 86 16 134/76 96 04/01/17 11:30 97.8 F 84 16 132/74 97 Intake and Output 04/01/17 04/01/17 04/02/17 15:59 23:59 07:59 Intake Total 1240 / 1240 560 / 560 1000 / 1000 Output Total 475 / 475 350 / 350 450 / 450 Balance 765 / 765 210 / 210 550 / 550 Intake: IV Fluids 1000 / 1000 1000 / 1000 0.9 % Sodium Chloride 1,000 ML 1000 / 1000 1000 / 1000 @ 75 mls/hr IVC .[id number] [facility] Rx #:[id number] Oral 240 / 240 560 / 560 Output: Urine 450 / 450 Urethral ([place]) 450 / 450 Catheter 475 / 475 350 / 350 Other: Meal Lunch Dinner Percent of Meal Consumed 10% 25% Weight 119.5 kg Blood Glucose* 142 169 Patient Weight 04/02/17 23:59 Weight 119.5 kg - Labs CBC & BMP: 04/02/17 03:37 04/02/17 03:37 Labs: Abnormal lab results WBC 15.8 K/mcL (4.3-11.1) H 04/02/17 03:37 Hgb 11.0 g/dL (11.5-15.4) L 04/02/17 03:37 MCH 27.8 pg (28.0-33.3) L 04/02/17 03:37 MCHC 30.9 g/dL (31.6-35.5) L 04/02/17 03:37 RDW 14.6 % (11.5-14.5) H 04/02/17 03:37 Neutrophils # 14.2 K/mcL (1.6-8.9) H 04/02/17 03:37 Sodium 133 mEq/L (136-145) L 04/02/17 03:37 Potassium 5.3 mEq/L (3.5-4.5) H D 04/02/17 03:37 Glucose 289 mg/dL (70-99) H 04/02/17 03:37 POC Glucose 169 (58-89) H 04/01/17 20:19 Calcium 8.5 mg/dL (8.6-10.8) L 04/02/17 03:37 Alkaline Phosphatase 134 Units/L (38-126) H 04/02/17 03:37 Albumin 2.7 g/dL (3.5-5.0) L 04/02/17 03:37 Globulin 4.5 g/dL (2.4-3.5) H 04/02/17 03:37 Albumin/Globulin Ratio 0.6 (1.1-2.2) L 04/02/17 03:37 Consult Discharge Plan - Plan Referrals: Nikhil Felix DO [Primary Care Provider] -
[2017-04-02] MEDS: Insulin LISPRO 300 UNITS/3 ML VIAL SQ SCH ×3 (08:38→16:32)
[2017-04-02] MEDS: Gabapentin 300 MG CAPSULE PO SCH ×2 (08:38→15:23)
[2017-04-02] MEDS: *HR* HYDROmorphone (PF) 1 MG/ML SYRINGE IVP PRN ×2 (08:39→16:25)
--- NOTE | 2017-04-02 09:37 | Event Note ---
Date of Encounter: 04/02/17 Time of Encounter: 09:36 Consent discussed this AM - reviewed and signed by patient. All questions were addressed and answered. F/ups scheduled and put with discharge paperwork on [address] in place.
[2017-04-02 10:26] LABS: Hematocrit 33.8 % (35.3-44.9); Hemoglobin 10.5 g/dL (11.5-15.4)
--- NOTE | 2017-04-02 14:01 | Internal Med Progress Note ---
Date of Encounter: 04/02/17 Time of Encounter: 09:20 - Assessment and plan (1) Femur fracture, left Current Visit: Yes Status: Acute Assessment and plan: Awaiting surgery later today. Pain control. Patient will be started on physical therapy. After surgery. Moderate risk for complications. Qualifiers: Encounter type: initial encounter Femur location: distal Fracture type: closed Fracture morphology: other fracture Qualified Code(s): S72.492A - Other fracture of lower end of left femur, initial encounter for closed fracture (2) CAD (coronary artery disease) Current Visit: Yes Status: Chronic Assessment and plan: No chest pain. Continue home medications. Cardiology consult appreciated. Qualifiers: Coronary Disease-Associated Artery/Lesion type: [place] artery [place] vs. transplanted heart: [place] heart Associated angina: angina presence unspecified Qualified Code(s): I25.10 - Atherosclerotic heart disease of [place] coronary artery without angina pectoris (3) Hypertension Current Visit: Yes Status: Chronic Assessment and plan: Blood pressure is well controlled at this time. Patient has been started on low -dose beta agus for asymptomatic tachycardia. We will assess response. She had previously exhibited intolerance to beta agus. Unclear which one. We will follow closely. Qualifiers: Hypertension type: essential hypertension Qualified Code(s): I10 - Essential (primary) hypertension (4) Diabetes Current Visit: Yes Status: Chronic Assessment and plan: Currently nothing by mouth. Continue current insulin regimen. She may need increased dosage after surgery when she is able to eat. Will adjust accordingly. Continue to monitor blood sugars. Qualifiers: Diabetes mellitus type: type 2 Diabetes mellitus complication status: with neurologic complications Diabetes mellitus complication detail: with polyneuropathy Diabetes mellitus mcfp insulin use: without mcfp use Qualified Code(s): E11.42 - Type 2 diabetes mellitus with diabetic polyneuropathy - Subjective Interval history: Patient is lying in bed. Appears comfortable. Pain in left lower extremity well controlled. Awaiting surgery is scheduled for later today. - Constitutional Vitals: Temp Pulse Resp BP Pulse Ox 99.0 F 98 16 99/59 91 04/02/17 10:32 04/02/17 10:32 04/02/17 10:32 04/02/17 10:32 04/02/17 10:32 General appearance: Present: cooperative, mild distress, A&O X 3, pleasant, answers questions appropriately - Neck Neck exam general surgery: Present: supple, trachea midline. Absent: lymphadenopathy - Respiratory Respiratory exam: Present: CTAB. Absent: accessory muscle use, rales, rhonchi, wheezes - Cardiovascular Cardiovascular exam: Present: RRR, +S1, +S2. Absent: diastolic murmur, gallop, rubs, systolic murmur - GI/Abdominal GI/Abdominal exam: Present: normal bowel sounds, soft, no peritoneal signs. Absent: distended, tenderness - Extremities Exam Extremities exam: Present: tenderness (Left lower extremity), warm, radial pulses palpable and symmetrical. Absent: calf tenderness, cyanotic, pedal edema Internal Medicine: Result - Labs CBC & Chem 7: 04/02/17 09:54 04/02/17 03:37 Labs: Short CBC 04/02/17 04/02/17 Range/Units 03:37 09:54 WBC 15.8 H (4.3-11.1) K/mcL Hgb 11.0 L 10.5 L (11.5-15.4) g/dL Hct 35.6 33.8 L (35.3-44.9) % Plt Count 295 (140-400) K/mcL Neutrophils # 14.2 H (1.6-8.9) K/mcL BMP 04/02/17 03:37 Sodium 133 L Potassium 5.3 H D Chloride 102 Carbon Dioxide 25 BUN 10 Creatinine 0.86 Glucose 289 H Calcium 8.5 L Liver Function 04/02/17 Range/Units 03:37 Total Bilirubin 0.5 (0.2-1.2) mg/dL AST 14 (5-34) Units/L ALT 11 (0-55) Units/L Alkaline Phosphatase 134 H (38-126) Units/L Albumin 2.7 L (3.5-5.0) g/dL - ABG Interpretation ABG results: PT/INR, D-dimer PT 11.5 Seconds (9.4-12.1) 03/31/17 22:34 Consult Discharge Plan - Plan Referrals: Nikhil Felix DO [Primary Care Provider] -
--- NOTE | 2017-04-02 16:58 | Anesthesia Evaluation PreOp ---
Date of Encounter: 04/02/17 Time of Encounter: 16:56 - Past History Planned Operation: ORIF Left femur Cardiac History: [place], HTN, Hyperlipidemia, Cardiac Stent (4 stents, and most recently 2014) Pulmonary History: ANNA Dx (possible - has not been tested) DISTRIBUTED GENERATION PROJECT MANAGER History: Denies Any Significant HX Other Medical History: Diabetes Type II (well controlled; uses insulin), Other ( BMI 40.1) Alcohol Use: none Drug use: none Medications and Allergies Citalopram [CeleXA] 20 mg PO QPM 01/05/15 [History] Ondansetron HCl [Zofran] 4 mg PO Q4-6H PRN 01/05/15 [History] Clopidogrel [Plavix] 75 mg PO QAM 02/19/15 [History] Gabapentin [Neurontin] 600 mg PO TID 02/19/15 [History] Tizanidine [Zanaflex] 4 mg PO Q8H PRN 02/19/15 [History] Zolpidem [Ambien] 10 mg PO HS 03/31/17 [History] metFORMIN [Glucophage] 1,000 mg PO BIDWM 03/31/17 [History] Albuterol Sulfate [Proair Hfa] 2 puff IH Q4H PRN 04/01/17 [History] Aspirin Enteric Coated [Aspirin EC] 81 mg PO DAILY 04/01/17 [History] Exenatide Microspheres [Bydureon Pen] 2 mg SQ QWEEK 04/01/17 [History] Nitroglycerin [Nitrostat] 0.4 mg SL Q5M PRN 04/01/17 [History] OxyCODONE/APAP 10/325 [Percocet 10/325 MG] 1 each PO Q6HR PRN 04/01/17 [History] Ranitidine HCl [Zantac] 150 mg PO HS 04/01/17 [History] Simvastatin [Zocor] 40 mg PO HS 04/01/17 [History] 3 Allergy/AdvReac Type Severity Reaction Status Date / Time No Known Allergies Allergy Verified 04/01/17 01:33 EDT - Meds/Allergy Pre-op Review Medications Reviewed: Yes Allergies Reviewed: Yes Beta Blockers on Current Med List: No Anesthesia Results - Labs 04/02/17 09:54 04/02/17 03:37 - Imaging EKG: report reviewed (SR) Additional studies: TTE: Impressions: LVEF 60-65%. Normal LV chamber size, wall thickness and function. Moderate left ventricular diastolic dysfunction. Normal right ventricular structure and function. Severe pulmonary hypertension. No significant valvular dysfunction. Cardiology consult: I have personally performed a face to face evaluation on this patient. I have reviewed and agree with the care plan. History and Exam by me shows: Prior TN 2013. Reports exertional dyspnea, but no chest pain. No active ACS or heart failure symptoms. ECG - sinus rhythm, no acute changes. Normal LV function noted on TTE. Severe pulmonary hypertension in setting of moderate diastolic dysfuction. Also reports symptoms suggestive of ANNA. Recommend outpatient sleep study. Patient appears to be an acceptable risk candidate for this moderate risk surgery. Patient wishes to proceed. All questions answered. Followup with cardiology as outpatient. Continue appropriate medications for CAD - currently on Plavix statin. Reports intolerance to BB therapy. . Anesthesia Exam Last Vital Signs Temp 98.1 F 04/02/17 15:28 Pulse 72 04/02/17 15:28 Resp 16 04/02/17 15:28 BP 118/65 04/02/17 15:28 Pulse Ox 91 04/02/17 15:28 Weight: 120 kg NPO (# of Hours): > 8 hrs - HEENT Pupil (Motor): Pupils equal, EOMI Mallampati: III Teeth: Poor dentition (broken teeth) Oral Opening: Greater than 3 - DISTRIBUTED GENERATION PROJECT MANAGER LOC: Oriented DISTRIBUTED GENERATION PROJECT MANAGER Motor: Normal RUE, Normal LUE, Normal RLE, Normal LLE, Normal Face - Cardiac Rhythm: Regular Murmur: None - Pulmonary Breath Sounds: bilateral Clear Respiratory Effort: Symmetrical Anesthesia Assess/Plan ASA Score: 3 Modified [place] Scale for Level of Consciousness: Cooperative, oriented, and tranquil Anesthetic Plan: General, Precautions (C-MAC in room) Monitoring Plan: Standard Monitors Recovery Plan: PACU
[2017-04-02] MEDS ORDERED: *HR* Midazolam HCl 2 MG/2 ML VIAL ONE (19:25)
[2017-04-02] MEDS ORDERED: *HR* FentaNYL (PF) 100 MCG/2 ML VIAL ONE (19:25)
[2017-04-02] MEDS ORDERED: *HR* Propofol 200 MG/20 ML VIAL IVP ONE (19:25)
[2017-04-02] MEDS ORDERED: Lidocaine -MPF 2% 2 ML VIAL ONE (19:25)
--- NOTE | 2017-04-02 20:27 | Orthopedic Operative Note ---
Date of procedure: 04/02/17 Pre-op diagnosis: Displaced comminuted left periprosthetic distal femur fracture Post-op diagnosis: same Procedure: open reduction internal fixation left distal periprosthetic femur fracture Estimated blood loss: 500 cc Hardware: Synthes left distal 6-hole periarticular Large Frag 4.5 LCDCP locking Plate, 1 4.5 cortical screws, 8 5.0 Locking screws, 3 5.0 conical screws, 10 mL DBX, OsteoSet Jim Procedural Notes: Patient with significant comminution anteriorly difficult to maintain reduction. Operative procedure: The patient was brought to the operating room and placed on the operating room fracture table. The well leg was placed in the well leg dominguez, the fracture leg was placed in the fracture leg dominguez. After general anesthesia was administered the operative leg was prepped and draped in the sterile surgical fashion The patient received IV antibiotics prior to skin incision. A standard lateral approach was made to the femur the incision is made to the skin and subcutaneous tissue. Hemostasis was obtained with Bovie cautery. Using careful blunt dissection the tensor fascia was identified and incised along the length of the incision. The vastus lateralis was elevated up after the fascia was split closing the lateral femur and the fracture site. Patient had significant comminution anteriorly. With displacement significant as well. Reduction was performed and confirmed to be acceptable in AP and lateral planes. This was challenging and took time. A 6-hole plate was approximated to the lateral aspect. It was fixed distally with one conical screw centrally. And proximally with one 4.5 cortical screw. Fixation was then augmented distally with additional 5.0 cannulated locking screws and proximally with 5.0 locking screws. Position of the hardware as well as fracture reduction was found to be acceptable in AP and lateral planes. In all 12 screws were used to maintain the fixation and the reduction. Was irrigated with copious amount of normal saline patient had a large defect anteriorly. This was filled with Jim OsteoSet and the cortical fragments were sat on top of this. Around the fracture was also packed 10 mL of DBX bone stimulator protein. The fascia was closed with a running #1 PDS suture tensa fascia was closed with a running #2 PDS suture subcutaneous tissues and closed deep #1 PDS suture superficially with 0 PDS suture and skin was closed with skin jason. The patient was placed in a sterile dressing, and knee immobilizer The patient was extubated, and then transferred to the recovery room in stable condition. Anesthesia: GETA Surgeon: Matt Schroeder Condition: stable Disposition: PACU
[2017-04-02] MEDS ORDERED: Ondansetron 4 MG/2 ML VIAL ONE (21:03)
[2017-04-02] MEDS ORDERED: *HR* HYDROmorphone (PF) 1 MG/ML SYRINGE ONE (21:23)
[2017-04-02] MEDS ORDERED: Albuterol 2.5 MG/3 ML NEBULIZER ONE (21:30)
[2017-04-02] MEDS ORDERED: Albuterol 2.5 MG/3 ML NEBULIZER IH ONE (21:35)
[2017-04-02] MEDS ORDERED: *HR* HYDROmorphone (PF) 1 MG/ML SYRINGE IVP PRN ×2 (21:35→23:02)
[2017-04-02] MEDS ORDERED: *HR* Promethazine 25 MG/ML VIAL IVP PRN (21:35)
[2017-04-02] MEDS ORDERED: *HR* Labetalol 20 MG/4 ML SYRINGE IVP PRN (21:35)
[2017-04-02] MEDS ORDERED: Ringers Solution, Lactated 1,000 ML IVC SCH (21:45)
[2017-04-02] MEDS ORDERED: Ringers Solution, Lactated 1,000 ML ONE (21:50)
[2017-04-02] MEDS ORDERED: Acetaminophen IV 1,000 MG/100 ML INFUS..BTL IVPB ONE (22:12)
--- NOTE | 2017-04-02 22:47 | Anesthesia Evaluation Post Op ---
Date of Encounter: 04/02/17 Time of Encounter: 22:46 - Vital Signs Vital Signs: Vital Signs/O2 Sat, Most Current Temp Pulse Resp BP Pulse Ox 101.9 F H 117 16 130/76 95 04/02/17 21:55 04/02/17 22:05 04/02/17 22:05 04/02/17 22:05 04/02/17 22:05 - Lungs Lungs: Clear Ascult./Percussion - Airway Airway: Non-obstructed - Cardiovascular Regular Rate - Mental Status Mental Status: Alert & Oriented, Answers Appropriately - Pain Pain Scale: 0 Pain Scale used: Numeric (1 - 10) - Nausea Vomiting Nausea Vomiting: Not Present - Hydration Hydration: Tolerates oral liquids, Madden catheter - Discharge PostOp Status: Transfer Patient to floor
[2017-04-02] MEDS ORDERED: 0.9 % Sodium Chloride 1,000 ML IVC SCH (23:02)
[2017-04-02] MEDS ORDERED: D5% in Water 1,000 ML IVC PRN (23:02)
[2017-04-02] MEDS ORDERED: Dextrose Gel 15 GM PO PRN ×4 (23:02)
[2017-04-02] MEDS ORDERED: *HR* Dextrose 50 % in Water (Syg) 50 ML SYRINGE IVP PRN (23:02)
[2017-04-02] MEDS ORDERED: Naloxone 0.4 MG/ML INJ IVP PRN (23:02)
[2017-04-03] MEDS: *HR* OxyCODONE Immed Rel 5 MG TABLET PO PRN ×2 (01:10→21:30)
[2017-04-03] MEDS: CeFAZolin Syr 3,000MG/30 ML 3,000 MG/30 ML SYRINGE IVPB SCH ×2 (01:10→08:15)
[2017-04-03] MEDS: *HR* Heparin 5,000 UNIT/ML VIAL SQ SCH ×3 (05:24→23:15)
[2017-04-03 06:22] LABS: Hematocrit 28.1 % (35.3-44.9)
[2017-04-03 06:25] LABS: Hemoglobin 8.7 g/dL (11.5-15.4)
[2017-04-03 06:44] LABS: BUN/Creatinine Ratio 15 (6-26); Blood Urea Nitrogen 12 mg/dL (7-20); Calcium 8.1 mg/dL (8.6-10.8); Carbon Dioxide 24 mEq/L (19-29); Chloride 104 mEq/L (98-109); Glucose 223 mg/dL (70-99); Osmolality,Calculated 289 (280-300); Potassium 4.7 mEq/L (3.5-4.5); Sodium 136 mEq/L (136-145); eGFR For African Americans > 60 (> 60); eGFR For Non-African Americans > 60 (> 60)
[2017-04-03] MEDS ORDERED: Furosemide 20 MG/2 ML VIAL IVP ONE (06:46)
--- NOTE | 2017-04-03 06:52 | Orthopedics Progress Note ---
Date of Encounter: 04/03/17 Time of Encounter: 06:51 Subjective Interval history: Patient was seen this morning doing well without complaints. Afebrile vital signs stable. Operative extremity: Neurovascularly intact Dressing clean dry and intact Calves nontender Assessment and plan: Continue with postoperative care Hematocrit 28 transfuse 1 unit Objective Vital signs: Vital Signs Temp Pulse Resp BP Pulse Ox 04/03/17 03:25 98.7 F 97 18 117/72 98 04/03/17 00:52 97.5 F L 87 16 124/74 98 04/03/17 00:00 99.0 F 100 14 119/61 96 04/02/17 23:30 99.3 F 101 15 113/56 95 04/02/17 23:00 98.8 F 100 14 118/53 94 04/02/17 22:35 110 16 125/70 96 04/02/17 22:25 100.7 F H 113 16 116/77 96 04/02/17 22:15 114 16 139/77 95 04/02/17 22:05 117 16 130/76 95 04/02/17 21:55 101.9 F H 115 16 116/87 92 04/02/17 21:45 123 16 122/62 91 04/02/17 21:35 114 16 157/79 93 04/02/17 21:25 98.5 F 110 16 157/79 95 04/02/17 21:15 111 20 142/87 95 04/02/17 21:05 110 19 169/96 95 04/02/17 20:55 98.6 F 108 20 166/79 95 04/02/17 15:28 98.1 F 72 16 118/65 91 04/02/17 10:32 99.0 F 98 16 99/59 91 04/02/17 07:30 98.0 F 104 14 124/68 95 Intake and Output 04/02/17 04/02/17 04/03/17 15:59 23:59 07:59 Intake Total 100 / 100 30 / 30 Output Total 800 / 800 Balance -700 / -700 30 / 30 Intake: IV Fluids 30 / 30 Ancef Syringe 3,000 MG/30 ML 3, 30 / 30 000 mg In 30 ml @ 200 mls/hr IVPB Q8HR [facility] Rx#:[id number] Oral 100 / 100 Output: Estimated Blood Loss 500 / 500 Urine Amount (Catheter) 300 / 300 Other: Blood Glucose* 173 216 - Labs CBC & BMP: 04/03/17 05:24 04/03/17 05:24 Labs: Abnormal lab results WBC 15.8 K/mcL (4.3-11.1) H 04/02/17 03:37 Hgb 8.7 g/dL (11.5-15.4) L D 04/03/17 05:24 Hct 28.1 % (35.3-44.9) L 04/03/17 05:24 MCH 27.8 pg (28.0-33.3) L 04/02/17 03:37 MCHC 30.9 g/dL (31.6-35.5) L 04/02/17 03:37 RDW 14.6 % (11.5-14.5) H 04/02/17 03:37 Neutrophils # 14.2 K/mcL (1.6-8.9) H 04/02/17 03:37 Potassium 4.7 mEq/L (3.5-4.5) H 04/03/17 05:24 Glucose 223 mg/dL (70-99) H 04/03/17 05:24 POC Glucose 139 (58-89) H 04/02/17 16:12 Calcium 8.1 mg/dL (8.6-10.8) L 04/03/17 05:24 Alkaline Phosphatase 134 Units/L (38-126) H 04/02/17 03:37 Albumin 2.7 g/dL (3.5-5.0) L 04/02/17 03:37 Globulin 4.5 g/dL (2.4-3.5) H 04/02/17 03:37 Albumin/Globulin Ratio 0.6 (1.1-2.2) L 04/02/17 03:37 - VTE Documentation of Mechanical Device: Venous foot pump, device Consult Discharge Plan - Plan Referrals: Nikhil Felix DO [Primary Care Provider] -
[2017-04-03] MEDS: Insulin LISPRO 300 UNITS/3 ML VIAL SQ SCH ×4 (08:14→20:19)
[2017-04-03] MEDS: Gabapentin 300 MG CAPSULE PO SCH ×3 (08:15→20:11)
[2017-04-03] MEDS ORDERED: 0.9 % Sodium Chloride 250 ML ONE (11:28)
[2017-04-03] MEDS: Acetaminophen 325 MG TABLET PO PRN ×2 (12:51→20:11)
[2017-04-03] MEDS: tiZANidine 4 MG TABLET PO PRN (14:06)
--- NOTE | 2017-04-03 16:16 | Event Note ---
Date of Encounter: 04/03/17 Time of Encounter: 16:15 Patient doing well; pain controlled. Bone stimulator in room, patient educated 3 hours/day. NWB. No knee ROM. Trom brace at all times. Transfused 2 units today. ECF likely Sun/. Continuity placed
--- NOTE | 2017-04-03 16:18 | Physician Discharge Referral ---
ExtendedCare Referral Info Transfer To: [facility] Provider in Charge: Provider in Charge after Transfer: PCP Institutional Level of Care: Skilled - Diagnosis (1) Status post open reduction with internal fixation of fracture Priority: Primary Status: Acute (2) Femur fracture, left Priority: Primary Status: Acute Expected Duration of Placement: < 30 days Prognosis: Good Aware of Diagnosis: Patient Aware of Prognosis: Patient - Transfer Medications Home Medications: Citalopram [CeleXA] 20 mg PO QPM 01/05/15 [History] Ondansetron HCl [Zofran] 4 mg PO Q4-6H PRN 01/05/15 [History] Clopidogrel [Plavix] 75 mg PO QAM 02/19/15 [History] Gabapentin [Neurontin] 600 mg PO TID 02/19/15 [History] Tizanidine [Zanaflex] 4 mg PO Q8H PRN 02/19/15 [History] Zolpidem [Ambien] 10 mg PO HS 03/31/17 [History] metFORMIN [Glucophage] 1,000 mg PO BIDWM 03/31/17 [History] Albuterol Sulfate [Proair Hfa] 2 puff IH Q4H PRN 04/01/17 [History] Aspirin Enteric Coated [Aspirin EC] 81 mg PO DAILY 04/01/17 [History] Exenatide Microspheres [Bydureon Pen] 2 mg SQ QWEEK 04/01/17 [History] Nitroglycerin [Nitrostat] 0.4 mg SL Q5M PRN 04/01/17 [History] OxyCODONE/APAP 10/325 [Percocet 10/325 MG] 1 each PO Q6HR PRN 04/01/17 [History] Ranitidine HCl [Zantac] 150 mg PO HS 04/01/17 [History] Simvastatin [Zocor] 40 mg PO HS 04/01/17 [History] Allergies/Adverse Reactions: 3 Allergy/AdvReac Type Severity Reaction Status Date / Time No Known Allergies Allergy Verified 04/01/17 01:33 EDT - Respiratory Orders None Smoking Cessation: Smoking cessation has been advised. For more information, call the [place] Tobacco Quit Line at 4-323-NKUG-NOW. - Ancillary Orders May use pressure relief devices daily prn, May go on MICHAELA w/family/respon republican w /meds at nurse discretion PRN, May consult with Dentist, Machine Shop Repair Technician, Senior Label Specialist PRN - Mobility Orders Chair, Ambulate - Rehabiliation Orders Rehab Potential: Good Rehab Orders: Evaluation for Physical Therapy, Evaluation for Occupational Therapy Other: No Knee Flexion. NWB to LLE. Tscope brace at all times. - Treatments List/Other: Opsite dressing, leave intact until first post-operative visit. If dressing becomes >50% saturated, contact office, remove dressing and place appropriate dressing in its place. Do not allow for dressing to get wet. Zipline dressing in place, plan to remove at post-operative day #14-16. Total Joint Precautions x 6 weeks Apply cold therapy 3-6x/day for 20 minutes at a time. Encourage calf pumps and leg raises. Use Incentive spirometer 10x/hour. Elevate affected extremity above heart as tolerated. Brace: Wear knee immobilizer at all times, ok to remove to shower and unstrap when in bed resting x 6 weeks. No knee ROM. NWB to LLE. Bone Stimulator 3 hours per day over fracture site* CERTIFICATION: I certify that the transfer of the above named patient to an Extended Care Facility is necessary for the continuing treatment of the diagnosis listed. The above information is true and accurate reflection of patient's current condition. Confidential - Redisclosure prohibited without a patient's written consent.
[2017-04-03] MEDS ORDERED: *HR* HYDROmorphone (PF) 1 MG/ML SYRINGE IVP PRN (17:50)
--- NOTE | 2017-04-03 21:32 | Internal Med Progress Note ---
Date of Encounter: 04/03/17 Time of Encounter: 14:00 - Assessment and plan (1) Femur fracture, left Current Visit: Yes Status: Acute Assessment and plan: Continue with postop care. PT OT. Pain control with IV Dilaudid. I will reduce the dose to 0.5 mg due to excessive sedation with administration of 1 mg. Continue with acetaminophen. I will also decrease gabapentin to 300 mg 3 times a day to avoid excessive sedation. She remains at high risk for morbidity mortality and complications due to treatment with IV opiates. Qualifiers: Encounter type: initial encounter Femur location: distal Fracture type: closed Fracture morphology: other fracture Qualified Code(s): S72.492A - Other fracture of lower end of left femur, initial encounter for closed fracture (2) CAD (coronary artery disease) Current Visit: No Status: Chronic Assessment and plan: Continue with Plavix, metoprolol and statin. Qualifiers: Coronary Disease-Associated Artery/Lesion type: [place] artery [place] vs. transplanted heart: [place] heart Associated angina: without angina Qualified Code(s): I25.10 - Atherosclerotic heart disease of [place] coronary artery without angina pectoris (3) Hypertension Current Visit: Yes Status: Chronic Assessment and plan: Blood pressure is well controlled at this time. Patient has been started on low -dose beta agus for asymptomatic tachycardia. Appears to be tolerating metoprolol. We will continue with this. Qualifiers: Hypertension type: essential hypertension Qualified Code(s): I10 - Essential (primary) hypertension (4) Diabetes Current Visit: Yes Status: Chronic Assessment and plan: Insulin sliding scale. Qualifiers: Diabetes mellitus type: type 2 Diabetes mellitus complication status: with neurologic complications Diabetes mellitus complication detail: with polyneuropathy Diabetes mellitus jail insulin use: without jail use Qualified Code(s): E11.42 - Type 2 diabetes mellitus with diabetic polyneuropathy (5) DVT prophylaxis Current Visit: No Status: Acute Assessment and plan: Subcutaneous heparin. - Subjective Interval history: Complains of severe left lower extremity pain at rest, improves with IV Dilaudid. Her RN states that after she received 1 mg of IV Dilaudid the patient had been overly sedated for most of the morning. - Constitutional Vitals: Temp Pulse Resp BP Pulse Ox 99.0 F 98 18 110/68 96 04/03/17 17:14 04/03/17 17:14 04/03/17 17:14 04/03/17 17:14 04/03/17 17:14 General appearance: Present: cooperative, mild distress, A&O X 3, pleasant, answers questions appropriately - Eye Eye exam: Present: PERRL, conjuntiva pink, sclera anicteric Pupils: Present: PERRL - Respiratory Respiratory exam: Present: CTAB. Absent: accessory muscle use, rales, rhonchi, wheezes - Cardiovascular Cardiovascular exam: Present: RRR, +S1, +S2. Absent: diastolic murmur, gallop, rubs, systolic murmur - GI/Abdominal GI/Abdominal exam: Present: normal bowel sounds, soft, no peritoneal signs. Absent: distended, tenderness - Extremities Exam Extremities exam: Present: warm, radial pulses palpable and symmetrical. Absent : calf tenderness, cyanotic, pedal edema Additional comments: Left lower extremity immobilized in a brace. - Skin Skin exam: Present: dry, intact Internal Medicine: Result - Labs CBC & Chem 7: 04/03/17 05:24 04/03/17 05:24 Labs: Short CBC 04/03/17 Range/Units 05:24 Hgb 8.7 L D (11.5-15.4) g/dL Hct 28.1 L (35.3-44.9) % BMP 04/03/17 05:24 Sodium 136 Potassium 4.7 H Chloride 104 Carbon Dioxide 24 BUN 12 Creatinine 0.82 Glucose 223 H Calcium 8.1 L - ABG Interpretation ABG results: PT/INR, D-dimer PT 11.5 Seconds (9.4-12.1) 03/31/17 22:34 - Impressions Impressions Femur X-Ray 04/02/17 09:37 IMPRESSION: Interval ORIF of distal femur fracture. [place] dorsal angulation of 20 degrees. D/ / Alok rBown MD / Alok Brown MD Interpreting Provider: Alok Brown MD - VTE Documentation of Mechanical Device: Venous foot pump, device Consult Discharge Plan - Plan Referrals: Nikhil Felix DO [Primary Care Provider] -
[2017-04-04 06:38] LABS: Basophils % 0.1 %; Immature Granulocytes % 0.4 % (0-4); Red Cell Distribution Width 14.5 % (11.5-14.5)
[2017-04-04 06:42] LABS: Eosinophils % 0.4 %; Hematocrit 26.3 % (35.3-44.9); Hemoglobin 8.3 g/dL (11.5-15.4); Lymphocytes # 0.5 K/mcL (0.6-4.6); Lymphocytes % 6.7 %; Mean Corpuscular HGB Conc 31.6 g/dL (31.6-35.5); Mean Corpuscular Hemoglobin 28.3 pg (28.0-33.3); Mean Corpuscular Volume 89.8 fL (83.0-100.0); Mean Platelet Volume 9.8 fL (9.4-12.4); Monocytes # 0.4 K/mcL (0.0-1.3); Monocytes % 6.2 %; Neutrophils # 6.1 K/mcL (1.6-8.9); Platelet Count 248 K/mcL (140-400); Red Blood Count 2.93 M/mcL (3.82-4.97); Segmented Neutrophils % 86.2 %
[2017-04-04] MEDS: *HR* Heparin 5,000 UNIT/ML VIAL SQ SCH ×3 (06:44→21:17)
[2017-04-04] MEDS: Acetaminophen IV 1,000 MG/100 ML INFUS..BTL IVPB SCH ×3 (06:44→17:37)
[2017-04-04] MEDS: Ketorolac 30 MG/ML VIAL IVP PRN ×2 (06:45→21:17)
[2017-04-04 06:50] LABS: BUN/Creatinine Ratio 16 (6-26); Blood Urea Nitrogen 11 mg/dL (7-20); Calcium 8.3 mg/dL (8.6-10.8); Carbon Dioxide 23 mEq/L (19-29); Chloride 102 mEq/L (98-109); Glucose 200 mg/dL (70-99); Osmolality,Calculated 285 (280-300); Potassium 4.8 mEq/L (3.5-4.5); Sodium 135 mEq/L (136-145); eGFR For African Americans > 60 (> 60); eGFR For Non-African Americans > 60 (> 60)
--- NOTE | 2017-04-04 07:55 | Orthopedics Progress Note ---
Date of Encounter: 04/04/17 Time of Encounter: 07:54 Subjective Interval history: Patient was seen this morning doing well without complaints. Afebrile vital signs stable. Operative extremity: Neurovascularly intact Dressing clean dry and intact Calves nontender Assessment and plan: Continue with postoperative care Hematocrit 26 recommend second transfuse 1 unit Objective Vital signs: Vital Signs Temp Pulse Resp BP Pulse Ox 04/04/17 03:55 97.8 F 100 21 133/88 96 04/04/17 00:02 98.1 F 90 19 105/59 92 04/03/17 22:24 98.2 F 111 16 137/79 96 04/03/17 17:14 99.0 F 98 18 110/68 96 04/03/17 15:00 101.3 F H 101 16 99/58 96 04/03/17 11:50 100.6 F H 103 18 120/67 94 04/03/17 10:03 100.4 F H 98 15 114/77 98 Intake and Output 04/03/17 04/03/17 04/04/17 15:59 23:59 07:59 Intake Total 380 / 380 460 / 460 200 / 200 Balance 380 / 380 460 / 460 200 / 200 Intake: IV Fluids 30 / 30 Ancef Syringe 3,000 MG/30 ML 3, 30 / 30 000 mg In 30 ml @ 200 mls/hr IVPB Q8HR [facility] Rx#:[id number] Oral 460 / 460 200 / 200 Blood Product 350 / 350 Rbcs Leuko Poor As-1 Unit 350 / 350 [id number] Other: Meal Dinner Percent of Meal Consumed 50% # Urine Diapers 2 3 2 Blood Glucose* 235 245 - Labs CBC & BMP: 04/04/17 06:17 11 06:17 Labs: Abnormal lab results RBC 2.93 M/mcL (3.82-4.97) L 04/04/17 06:17 Hgb 8.3 g/dL (11.5-15.4) L 04/04/17 06:17 Hct 26.3 % (35.3-44.9) L 04/04/17 06:17 Lymphocytes # 0.5 K/mcL (0.6-4.6) L 04/04/17 06:17 Sodium 135 mEq/L (136-145) L 04/04/17 06:17 Potassium 4.8 mEq/L (3.5-4.5) H 04/04/17 06:17 Glucose 200 mg/dL (70-99) H 04/04/17 06:17 POC Glucose 244 (58-89) H 04/03/17 20:11 Calcium 8.3 mg/dL (8.6-10.8) L 04/04/17 06:17 Alkaline Phosphatase 134 Units/L (38-126) H 04/02/17 03:37 Albumin 2.7 g/dL (3.5-5.0) L 04/02/17 03:37 Globulin 4.5 g/dL (2.4-3.5) H 04/02/17 03:37 Albumin/Globulin Ratio 0.6 (1.1-2.2) L 04/02/17 03:37 - VTE Documentation of Mechanical Device: Venous foot pump, device Consult Discharge Plan - Plan Referrals: Nikhil Felix DO [Primary Care Provider] -
[2017-04-04] MEDS ORDERED: Furosemide 40 MG/4 ML VIAL IVP ONE ×2 (08:39→15:34)
[2017-04-04] MEDS: Gabapentin 300 MG CAPSULE PO SCH ×6 (08:49→21:17)
[2017-04-04] MEDS: Insulin LISPRO 300 UNITS/3 ML VIAL SQ SCH ×4 (08:51→21:29)
[2017-04-04 09:08] LABS: ABG Base Excess 2 mEq/L (-2 to 3); ABG HCO3 28 mEq/L (21-27); ABG Oxygen Saturation 99 % (95-98); ABG PCO2 50 mmHg (35-45); ABG PH 7.35 pH Units (7.32-7.45); ABG PO2 126 mmHg (85-104); ABG TCO2 29 mEq/L (20-26)
--- NOTE | 2017-04-04 09:11 | Internal Med Progress Note ---
Date of Encounter: 04/04/17 Time of Encounter: 08:40 - Assessment and plan (1) Femur fracture, left Current Visit: Yes Status: Acute Assessment and plan: Displaced comminuted left periprosthetic distal femur fracture - status post ORIF left distal periprosthetic femur fracture Continue Oxycodone, Toradol PRN, Tylenol PRN Continue with postop PT/OT, monitor H&H, transfuse 2 units PRBC She remains at high risk for morbidity mortality and complications due to treatment with IV opiates Cardiac telemetry, labs in a.m., monitor closely Qualifiers: Encounter type: initial encounter Femur location: distal Fracture type: closed Fracture morphology: other fracture Qualified Code(s): S72.492A - Other fracture of lower end of left femur, initial encounter for closed fracture (2) Acute encephalopathy Current Visit: Yes Status: Acute Assessment and plan: Acute encephalopathy, likely metabolic - possibly due to hypercapnia and pulmonary edema or due to medication use - patient is now back to baseline mental status Continue IV fluids, supportive care, IV Lasix 40 mg given, DuoNeb breathing treatment CT head - pending Chest x-ray - pending ABG - reviewed Cardiac telemetry, monitor closely, labs in a.m. (3) CAD (coronary artery disease) Current Visit: No Status: Chronic Assessment and plan: Coronary artery disease status post stents, stable Continue Aspirin, Plavix, Metoprolol, Zocor Qualifiers: Coronary Disease-Associated Artery/Lesion type: [place] artery [place] vs. transplanted heart: [place] heart Associated angina: without angina Qualified Code(s): I25.10 - Atherosclerotic heart disease of [place] coronary artery without angina pectoris (4) Hypertension Current Visit: Yes Status: Chronic Assessment and plan: Essential hypertension, controlled, monitor Continue Lopressor Qualifiers: Hypertension type: essential hypertension Qualified Code(s): I10 - Essential (primary) hypertension (5) Diabetes Current Visit: Yes Status: Chronic Assessment and plan: Type 2 diabetes mellitus, [id number], hyperglycemia Continue insulin sliding scale, glucose checks Qualifiers: Diabetes mellitus type: type 2 Diabetes mellitus complication status: with neurologic complications Diabetes mellitus complication detail: with polyneuropathy Diabetes mellitus termination clerk insulin use: without termination clerk use Qualified Code(s): E11.42 - Type 2 diabetes mellitus with diabetic polyneuropathy (6) DVT prophylaxis Current Visit: No Status: Acute Assessment and plan: Continue Subcutaneous heparin - Time Spent With Patient 25 - 35 minutes - Subjective Interval history: Examined this morning. Patient was initially drowsy and unresponsive. She had bilateral coarse breath sounds. She was given IV Lasix and started on BiPAP. CT of the head is pending and chest x-ray is pending. ABG has been reviewed. RN states that patient has been drowsy since earlier in the morning. She had no fever overnight. Hemodynamically stable. Patient was examined again at around 11:30 AM. She is now awake and alert. Family is at bedside. Patient is back to baseline mental status. She denies chest pain or shortness of breath. No other acute events or complaints. - Constitutional Vitals: Temp Pulse Resp BP Pulse Ox 98.4 F 86 20 133/80 90 04/04/17 08:24 04/04/17 08:24 04/04/17 08:24 04/04/17 08:24 04/04/17 08:24 General appearance: Present: cooperative, A&O X 3, pleasant, no acute distress, obese, answers questions appropriately - Head Head exam: Present: atraumatic - Eye Eye exam: Present: EOMI - ENT ENT exam: Present: mucous membranes moist - Respiratory Respiratory exam: Present: rales (Bilateral). Absent: accessory muscle use, chest wall tenderness, rhonchi, wheezes, tachypnea - Cardiovascular Cardiovascular exam: Present: RRR, +S1, +S2 - GI/Abdominal GI/Abdominal exam: Present: soft. Absent: distended, firm, guarding, tenderness - Extremities Exam Extremities exam: Present: radial pulses palpable and symmetrical. Absent: calf tenderness, cyanotic, pedal edema Additional comments: Left lower extremity distal pulses palpable - Neurological Exam Neurological exam: Present: alert, oriented X3, no focal deficits. Absent: facial droop, speech deficit Internal Medicine: Result - Labs CBC & Chem 7: 04/04/17 06:17 04/04/17 06:17 Labs: Short CBC 04/04/17 Range/Units 06:17 WBC 7.1 D (4.3-11.1) K/mcL Hgb 8.3 L (11.5-15.4) g/dL Hct 26.3 L (35.3-44.9) % Plt Count 248 (140-400) K/mcL Neutrophils # 6.1 (1.6-8.9) K/mcL BMP 04/04/17 06:17 Sodium 135 L Potassium 4.8 H Chloride 102 Carbon Dioxide 23 BUN 11 Creatinine 0.67 Glucose 200 H Calcium 8.3 L - ABG Interpretation ABG results: ABG ABG pH 7.35 pH Units (7.32-7.45) 04/04/17 09:05 ABG pCO2 50 mmHg (35-45) H 04/04/17 09:05 ABG pO2 126 mmHg (85-104) H 04/04/17 09:05 ABG O2 Saturation 99 % (95-98) H 04/04/17 09:05 PT/INR, D-dimer PT 11.5 Seconds (9.4-12.1) 03/31/17 22:34 - VTE Documentation of Mechanical Device: Venous foot pump, device Consult Discharge Plan - Plan Referrals: Nikhil Felix DO [Primary Care Provider] -
[2017-04-04] MEDS: *HR* OxyCODONE Immed Rel 5 MG TABLET PO PRN (10:05)
[2017-04-04] MEDS: Ipratropium/Albuterol Neb 3 ML IH SCH ×3 (10:28→22:32)
[2017-04-04] MEDS ORDERED: 0.9 % Sodium Chloride 250 ML ONE (12:21)
--- NOTE | 2017-04-04 19:40 | Electrocardiograph Report ---
[place] [address] Test Date: 2017-04-04 Pat Name: Juani Mims Department: 114 Room: [facility] Gender: F Dietary Cook: [facility] : 1960 Requested By: Constantino Grant Order Number: [id number] Reading MD: Papi Snow MD Measurements Intervals [place] Rate: 86 P: 39 W[place]: 166 QRS: 31 QRSD: 101 T: 64 QT: 352 QTc: 395 Interpretive Statements SINUS RHYTHM Electronically Signed On 04-04-2017 19:38:00 EST by Papi Snow MD
[2017-04-05 00:11] LABS: ABG PH 7.41 pH Units (7.32-7.45)
[2017-04-05 00:12] LABS: ABG Base Excess 4 mEq/L (-2 to 3); ABG HCO3 29 mEq/L (21-27); ABG Oxygen Saturation 97 % (95-98); ABG PCO2 46 mmHg (35-45); ABG PO2 90 mmHg (85-104); ABG TCO2 31 mEq/L (20-26)
[2017-04-05] MEDS: Acetaminophen IV 1,000 MG/100 ML INFUS..BTL IVPB SCH ×4 (00:47→13:11)
[2017-04-05] MEDS: Ipratropium/Albuterol Neb 3 ML IH SCH ×5 (04:41→22:10)
[2017-04-05] MEDS: *HR* Heparin 5,000 UNIT/ML VIAL SQ SCH ×3 (06:32→21:42)
[2017-04-05 06:49] LABS: Eosinophils # 0.1 K/mcL (0.0-0.6); Eosinophils % 1.6 %; Hematocrit 28.6 % (35.3-44.9); Immature Granulocytes % 0.4 % (0-4); Lymphocytes # 0.5 K/mcL (0.6-4.6); Lymphocytes % 9.4 %; Mean Corpuscular HGB Conc 31.5 g/dL (31.6-35.5); Mean Corpuscular Volume 89.1 fL (83.0-100.0); Mean Platelet Volume 9.6 fL (9.4-12.4); Monocytes # 0.3 K/mcL (0.0-1.3); Monocytes % 5.3 %; Neutrophils # 4.7 K/mcL (1.6-8.9); Platelet Count 229 K/mcL (140-400); Red Blood Count 3.21 M/mcL (3.82-4.97); Red Cell Distribution Width 14.6 % (11.5-14.5); Segmented Neutrophils % 83.3 %
[2017-04-05 07:02] LABS: BUN/Creatinine Ratio 21 (6-26); Blood Urea Nitrogen 14 mg/dL (7-20); Calcium 8.2 mg/dL (8.6-10.8); Carbon Dioxide 30 mEq/L (19-29); Chloride 100 mEq/L (98-109); Glucose 199 mg/dL (70-99); Osmolality,Calculated 292 (280-300); Sodium 138 mEq/L (136-145); eGFR For African Americans > 60 (> 60); eGFR For Non-African Americans > 60 (> 60)
[2017-04-05 07:05] LABS: Potassium 3.7 mEq/L (3.5-4.5)
--- NOTE | 2017-04-05 08:23 | Orthopedics Progress Note ---
Date of Encounter: 04/05/17 Time of Encounter: 08:23 Subjective Interval history: Patient was seen this morning doing well without complaints. Afebrile vital signs stable. Operative extremity: Neurovascularly intact Dressing clean dry and intact Calves nontender Assessment and plan: Continue with postoperative care stable for dc Objective Vital signs: Vital Signs Temp Pulse Resp BP Pulse Ox 04/05/17 08:20 97.8 F 88 17 123/81 95 04/05/17 04:41 16 100 04/05/17 04:13 97.6 F 78 20 121/80 96 04/05/17 00:50 21 115/69 99 04/05/17 00:05 75/48 79 04/05/17 00:04 97.5 F L 73 18 115/69 89 04/04/17 23:34 97.7 F 86 18 138/83 92 04/04/17 22:32 16 96 04/04/17 21:00 99 04/04/17 19:49 99.0 F 90 18 119/74 93 04/04/17 16:00 16 94 04/04/17 12:47 98.4 F 80 16 107/74 97 04/04/17 12:45 97.5 F L 81 16 111/73 99 04/04/17 12:28 97.4 F L 78 16 92/52 97 04/04/17 10:28 16 91 04/04/17 09:17 20 132/69 83 04/04/17 09:08 90 04/04/17 08:24 98.4 F 86 20 133/80 90 Intake and Output 04/04/17 04/05/17 04/05/17 23:59 07:59 15:59 Intake Total 150 / 150 100 / 100 Output Total 500 / 500 400 / 400 Balance -350 / -350 -300 / -300 Intake: IV Fluids 100 / 100 Ofirmev 1,000 mg/100 ml 1,000 100 / 100 mg In 100 ml @ 400 mls/hr IVPB Q6H [facility] Rx#:[id number] Oral 50 / 50 100 / 100 Output: Urine 500 / 500 Catheter 400 / 400 Other: Blood Glucose* 170 190 - Labs CBC & BMP: 04/05/17 06:25 04/05/17 06:25 Labs: Abnormal lab results RBC 3.21 M/mcL (3.82-4.97) L 04/05/17 06:25 Hgb 9.0 g/dL (11.5-15.4) L 04/05/17 06:25 Hct 28.6 % (35.3-44.9) L 04/05/17 06:25 MCHC 31.5 g/dL (31.6-35.5) L 04/05/17 06:25 RDW 14.6 % (11.5-14.5) H 04/05/17 06:25 Lymphocytes # 0.5 K/mcL (0.6-4.6) L 04/05/17 06:25 ABG pCO2 46 mmHg (35-45) H 04/05/17 00:05 ABG HCO3 29 mEq/L (21-27) H 04/05/17 00:05 ABG Total CO2 31 mEq/L (20-26) H 04/05/17 00:05 ABG Base Excess 4 mEq/L (-2 to 3) H 04/05/17 00:05 Carbon Dioxide 30 mEq/L (19-29) H 04/05/17 06:25 Glucose 199 mg/dL (70-99) H 04/05/17 06:25 POC Glucose 190 (58-89) H 04/05/17 07:15 Calcium 8.2 mg/dL (8.6-10.8) L 04/05/17 06:25 Alkaline Phosphatase 134 Units/L (38-126) H 04/02/17 03:37 Albumin 2.7 g/dL (3.5-5.0) L 04/02/17 03:37 Globulin 4.5 g/dL (2.4-3.5) H 04/02/17 03:37 Albumin/Globulin Ratio 0.6 (1.1-2.2) L 04/02/17 03:37 - VTE Documentation of Mechanical Device: Venous foot pump, device Consult Discharge Plan - Plan Referrals: Margaret Stevenson, PAC [Physician Assembler Molded Frames] - 05/03/17 8:00 am Matt Schroeder MD [Partnered Physician] - 05/15/17 8:30 am Veda Cedeno, PAC [Physician Assembler Molded Frames] - 04/11/17 8:00 am (& also Sunday, April 18, 2017 at 08:30 AM) Nikhil Felix DO [Primary Care Provider] - 04/12/17 1:30 pm (& also May at 11:15 AM)
[2017-04-05] MEDS: Ketorolac 30 MG/ML VIAL IVP PRN ×3 (08:57→18:12)
[2017-04-05] MEDS: Insulin LISPRO 300 UNITS/3 ML VIAL SQ SCH ×4 (09:01→21:40)
[2017-04-05] MEDS: tiZANidine 4 MG TABLET PO PRN (09:08)
--- NOTE | 2017-04-05 11:42 | Internal Med Progress Note ---
Date of Encounter: 04/05/17 Time of Encounter: 08:10 - Assessment and plan (1) Femur fracture, left Current Visit: Yes Status: Acute Assessment and plan: Displaced comminuted left periprosthetic distal femur fracture - status post ORIF left distal periprosthetic femur fracture - postop day #2 Continue Oxycodone, Toradol PRN, Tylenol PRN Continue with postop PT/OT, monitor H&H, 2 units PRBC transfused She remains at high risk for morbidity mortality and complications due to treatment with IV opiates Cardiac telemetry, labs in a.m., monitor closely, anticipate discharge to ECF soon Qualifiers: Encounter type: initial encounter Femur location: distal Fracture type: closed Fracture morphology: other fracture Qualified Code(s): S72.492A - Other fracture of lower end of left femur, initial encounter for closed fracture (2) Acute encephalopathy Current Visit: Yes Status: Acute Assessment and plan: Acute encephalopathy, likely metabolic - possibly due to hypercapnia and pulmonary edema or due to medication use - patient is now back to baseline mental status - patient is now doing well on O2 via nasal cannula Continue supportive care, IV Lasix 40 mg given, DuoNeb breathing treatment, incentive spirometry CT head - no acute intracranial abnormality Chest x-ray - mild bilateral edema ABG - reviewed Cardiac telemetry, monitor closely, labs in a.m. 04/05 - patient now awake and alert. Tolerating oral diet. At baseline mental status. Doing well on O2 via nasal cannula. Anticipate discharge to ECF soon. (3) CAD (coronary artery disease) Current Visit: No Status: Chronic Assessment and plan: Coronary artery disease status post stents, stable Continue Aspirin, Plavix, Metoprolol, Zocor Qualifiers: Coronary Disease-Associated Artery/Lesion type: [place] artery [place] vs. transplanted heart: [place] heart Associated angina: without angina Qualified Code(s): I25.10 - Atherosclerotic heart disease of [place] coronary artery without angina pectoris (4) Hypertension Current Visit: Yes Status: Chronic Assessment and plan: Essential hypertension, controlled, monitor Continue Lopressor 25 mg twice daily Qualifiers: Hypertension type: essential hypertension Qualified Code(s): I10 - Essential (primary) hypertension (5) Diabetes Current Visit: Yes Status: Chronic Assessment and plan: Type 2 diabetes mellitus, uho-ruvlozj-ytvhflidl, hyperglycemia Continue insulin sliding scale, glucose checks Qualifiers: Diabetes mellitus type: type 2 Diabetes mellitus complication status: with neurologic complications Diabetes mellitus complication detail: with polyneuropathy Diabetes mellitus shelter insulin use: without shelter use Qualified Code(s): E11.42 - Type 2 diabetes mellitus with diabetic polyneuropathy (6) DVT prophylaxis Current Visit: No Status: Acute Assessment and plan: Continue Subcutaneous heparin - Time Spent With Patient 25 - 35 minutes - Subjective Interval history: Examined this morning. Patient awake and alert. Not in any distress. Seems to be at baseline mental status. Denies chest pain or shortness of breath. Patient required BiPAP last night. Doing well on O2 via nasal cannula today. PRBC transfusion yesterday. No fever. Hemodynamically stable. He . Complains of pain in left lower extremity. No other acute events or complaints. CT head did not show any acute intracranial abnormality. Chest x-ray revealed bilateral mild edema. Continue DuoNeb breathing treatment and incentive spirometry. - Constitutional Vitals: Temp Pulse Resp BP Pulse Ox 97.8 F 88 16 123/81 98 04/05/17 08:20 04/05/17 08:20 04/05/17 10:59 04/05/17 08:20 04/05/17 10:59 General appearance: Present: cooperative, A&O X 3, pleasant, no acute distress, obese, answers questions appropriately - Head Head exam: Present: atraumatic - Eye Eye exam: Present: EOMI - ENT ENT exam: Present: mucous membranes moist - Respiratory Respiratory exam: Present: decreased breath sounds (Slightly decreased in both bases, otherwise clear to auscultation, rales have improved). Absent: accessory muscle use, chest wall tenderness, rales, rhonchi, tachypnea - Cardiovascular Cardiovascular exam: Present: RRR, +S1, +S2 - GI/Abdominal GI/Abdominal exam: Present: soft. Absent: distended, firm, guarding, tenderness - Extremities Exam Extremities exam: Present: radial pulses palpable and symmetrical. Absent: calf tenderness, cyanotic, pedal edema Additional comments: Left lower extremity distal pulses palpable, brace in place - Neurological Exam Neurological exam: Present: alert, motor sensory deficit, oriented X3, no focal deficits. Absent: facial droop, speech deficit Internal Medicine: Result - Labs CBC & Chem 7: 04/05/17 06:25 04/05/17 06:25 Labs: Short CBC 04/05/17 Range/Units 06:25 WBC 5.6 (4.3-11.1) K/mcL Hgb 9.0 L (11.5-15.4) g/dL Hct 28.6 L (35.3-44.9) % Plt Count 229 (140-400) K/mcL Neutrophils # 4.7 (1.6-8.9) K/mcL BMP 04/05/17 06:25 Sodium 138 Potassium 3.7 D Chloride 100 Carbon Dioxide 30 H BUN 14 Creatinine 0.68 Glucose 199 H Calcium 8.2 L - ABG Interpretation ABG results: ABG ABG pH 7.41 pH Units (7.32-7.45) 04/05/17 00:05 ABG pCO2 46 mmHg (35-45) H 04/05/17 00:05 ABG pO2 90 mmHg (85-104) 04/05/17 00:05 ABG O2 Saturation 97 % (95-98) 04/05/17 00:05 PT/INR, D-dimer PT 11.5 Seconds (9.4-12.1) 03/31/17 22:34 - Impressions Impressions Chest X-Ray 04/04/17 08:44 IMPRESSION: Mild bilateral interstitial opacities which may be related to mild a edema and/ or pneumonia. The previously seen more focal right perihilar infiltrate is improved. D/ / Hattie Alicea MD / Hattie Alicea MD Interpreting Provider: Hattie Alicea MD Head CT 04/04/17 11:41 IMPRESSION: No acute intracranial abnormality. D/ / Hattie Alicea MD / Hattie Alicea MD Interpreting Provider: Hattie Alicea MD - VTE Documentation of Mechanical Device: Venous foot pump, device Consult Discharge Plan - Plan Referrals: Margaret Stevenson PAC [Physician Wet Crown Blocking Operator] - 05/03/17 8:00 Matt Cramer MD [Partnered Physician] - 05/15/17 8:30 am Veda Cedeno PAC [Physician Wet Crown Blocking Operator] - 04/11/17 8:00 am (& also Tuesday, April 18, 2017 at 08:30 AM) Nikhil Felix DO [Primary Care Provider] - 04/12/17 1:30 pm (& also May at 11:15 AM)
[2017-04-05] MEDS: *HR* OxyCODONE Immed Rel 5 MG TABLET PO PRN (21:42)
[2017-04-05] MEDS: Ondansetron 4 MG/2 ML VIAL IVP PRN (21:42)
[2017-04-06] MEDS: Ketorolac 30 MG/ML VIAL IVP PRN ×2 (00:24→07:48)
[2017-04-06] MEDS: Acetaminophen 325 MG TABLET PO PRN (00:28)
[2017-04-06] MEDS ORDERED: Metoclopramide 10 MG/2 ML VIAL IVP ONE (01:48)
[2017-04-06] MEDS: *HR* OxyCODONE Immed Rel 5 MG TABLET PO PRN ×3 (04:05→17:50)
[2017-04-06] MEDS: Ipratropium/Albuterol Neb 3 ML IH SCH ×3 (04:40→15:15)
[2017-04-06 05:45] LABS: Basophils % 0.3 %; Eosinophils # 0.1 K/mcL (0.0-0.6); Eosinophils % 2.6 %; Hematocrit 27.1 % (35.3-44.9); Hemoglobin 8.7 g/dL (11.5-15.4); Immature Granulocytes % 0.5 % (0-4); Lymphocytes # 0.6 K/mcL (0.6-4.6); Lymphocytes % 14.9 %; Mean Corpuscular HGB Conc 32.1 g/dL (31.6-35.5); Mean Corpuscular Hemoglobin 28.4 pg (28.0-33.3); Mean Corpuscular Volume 88.6 fL (83.0-100.0); Mean Platelet Volume 9.5 fL (9.4-12.4); Monocytes # 0.3 K/mcL (0.0-1.3); Monocytes % 7.7 %; Neutrophils # 2.9 K/mcL (1.6-8.9); Platelet Count 236 K/mcL (140-400); Red Blood Count 3.06 M/mcL (3.82-4.97)
[2017-04-06] MEDS: *HR* Heparin 5,000 UNIT/ML VIAL SQ SCH (06:18)
[2017-04-06] MEDS: Ondansetron 4 MG/2 ML VIAL IVP PRN (07:48)
[2017-04-06] MEDS: Insulin LISPRO 300 UNITS/3 ML VIAL SQ SCH ×2 (10:08→13:22)
--- NOTE | 2017-04-06 11:05 | Discharge Summary ---
Date of Encounter: 04/06/17 Time of Encounter: 08:20 - Discharge Diagnosis (1) Femur fracture, left Priority: Primary Status: Acute Comments: Displaced comminuted left periprosthetic distal femur fracture - status post ORIF left distal periprosthetic femur fracture - postop day #3 Continue Oxycodone, Toradol PRN, Tylenol PRN Continue with postop PT/OT, monitor H&H, 2 units PRBC transfused DVT prophylaxis with Lovenox for 10 days She remains at high risk due to fracture and other comorbid conditions Discharge to ECF today, continue PT/OT Follow-up with orthopedics, return of symptoms worsen, follow up with primary care physician Qualifiers: Encounter type: initial encounter Femur location: distal Fracture type: closed Fracture morphology: other fracture Qualified Code(s): S72.492A - Other fracture of lower end of left femur, initial encounter for closed fracture (2) Acute encephalopathy Priority: Primary Status: Acute Comments: Acute encephalopathy, likely metabolic - possibly due to hypercapnia and pulmonary edema or due to medication use - patient is now back to baseline mental status - patient is now doing well on room air Continue supportive care, IV Lasix 40 mg given, DuoNeb breathing treatment, incentive spirometry CT head - no acute intracranial abnormality Chest x-ray - mild bilateral edema ABG - reviewed 04/05 - patient now awake and alert. Tolerating oral diet. At baseline mental status. Doing well on O2 via nasal cannula. Anticipate discharge to ECF soon 04/06 - patient is awake and alert. At baseline mental status. Doing well on room air. Continue PT/OT. Discharge to ECF today. (3) CAD (coronary artery disease) Priority: Secondary Status: Chronic Comments: Coronary artery disease status post stents, stable Continue Aspirin, Plavix, Metoprolol, Zocor Qualifiers: Coronary Disease-Associated Artery/Lesion type: [place] artery [place] vs. transplanted heart: [place] heart Associated angina: without angina Qualified Code(s): I25.10 - Atherosclerotic heart disease of [place] coronary artery without angina pectoris (4) Hypertension Priority: Secondary Status: Chronic Comments: Essential hypertension, controlled, monitor Continue Lopressor 25 mg twice daily Qualifiers: Hypertension type: essential hypertension Qualified Code(s): I10 - Essential (primary) hypertension (5) Diabetes Priority: Secondary Status: Chronic Comments: Type 2 diabetes mellitus, [id number]-pfsosquqj, hyperglycemia Continue home dose of Metformin, Exenatide Qualifiers: Diabetes mellitus type: type 2 Diabetes mellitus complication status: with neurologic complications Diabetes mellitus complication detail: with polyneuropathy Diabetes mellitus terminal manager insulin use: without skilled nursing use Qualified Code(s): E11.42 - Type 2 diabetes mellitus with diabetic polyneuropathy - Discharge Medications Prescriptions: Ipratropium/Albuterol Neb [Duoneb] 3 ml IH [id number] PRN #30 inhsol PRN Reason: Shortness Of Breath/Wheezing OxyCODONE/APAP 10/325 [Percocet 10/325 MG] 1 each PO Q6HR PRN #10 tablet PRN Reason: Pain Docusate [Colace] 100 mg PO BID PRN #14 capsule PRN Reason: Constipation Enoxaparin [Lovenox] 40 mg SQ DAILY 10 Days #10 syr Gabapentin [Neurontin] 600 mg PO TID #14 tablet Metoprolol [Lopressor] 25 mg PO BID #60 tablet Zolpidem [Ambien] 10 mg PO HS #7 tablet Home Medications: Citalopram [CeleXA] 20 mg PO QPM 01/05/15 [History] Ondansetron HCl [Zofran] 4 mg PO Q4-6H PRN 01/05/15 [History] Clopidogrel [Plavix] 75 mg PO QAM 02/19/15 [History] Tizanidine [Zanaflex] 4 mg PO Q8H PRN 02/19/15 [History] metFORMIN [Glucophage] 1,000 mg PO BIDWM 03/31/17 [History] Albuterol Sulfate [Proair Hfa] 2 puff IH Q4H PRN 04/01/17 [History] Aspirin Enteric Coated [Aspirin EC] 81 mg PO DAILY 04/01/17 [History] Exenatide Microspheres [Bydureon Pen] 2 mg SQ QWEEK 04/01/17 [History] Nitroglycerin [Nitrostat] 0.4 mg SL Q5M PRN 04/01/17 [History] Ranitidine HCl [Zantac] 150 mg PO HS 04/01/17 [History] Simvastatin [Zocor] 40 mg PO HS 04/01/17 [History] Docusate [Colace] 100 mg PO BID PRN #14 capsule 04/06/17 [Rx] Enoxaparin [Lovenox] 40 mg SQ DAILY 10 Days #10 syr 04/06/17 [Rx] Gabapentin [Neurontin] 600 mg PO TID #14 tablet 04/06/17 [Rx] Ipratropium/Albuterol Neb [Duoneb] 3 ml IH [id number] PRN #30 inhsol 04/06/17 [Rx] Metoprolol [Lopressor] 25 mg PO BID #60 tablet 04/06/17 [Rx] OxyCODONE/APAP 10/325 [Percocet 10/325 MG] 1 each PO Q6HR PRN #10 tablet [Rx] Zolpidem [Ambien] 10 mg PO HS #7 tablet 04/06/17 [Rx] Allergies/Adverse Reactions: 3 Allergy/AdvReac Type Severity Reaction Status Date / Time No Known Allergies Allergy Verified 04/01/17 01:33 EDT Procedures/tests Complete & Pending: Procedures Performed prior 72 hours Category Date Time Status CT head/brain wo con [CT] Stat Cat Scan 04/04/17 11:41 Completed EKG [ECG 12 lead ECG] [ECG] Stat Y 04/04/17 08:40 Completed Date of admission: 04/01/17 01:16 EDT Primary care physician: Angus Ragsdale Consults: 04/01/17 08:02 Consult to Cardiology [CONS] Routine Comment: Consulting Provider: Isidro Jackson Reason for Consult: Preoperative evaluation Time Notified: 08:02 Call Completed: Yes 04/02/17 23:02 Consult to Occupational Therapy [CONS] Routine Comment: Evaluate, develop and implement POC Reason for Consult: postop Consult to Orthopedic Navigator [CONS] [CONS] Routine Consult to Physical Therapy [CONS] Routine Comment: Evaluate, develop and implement POC Reason for Consult: toe touch wb Consult to Soccer Referee [CONS] Routine Reason for SW Consult: postop RT Post Op Consult [CONS] Routine Anticipated date of discharge: 04/06/17 - Patient Status Disposition: Transfer SNF Condition: Fair Functional capacity at discharge: uses cane/walker Overall status at discharge: patient is progressing back to baseline - Discharge Instructions Follow Up With: Margaret Stevenson PAC [Physician Carboy Filler] - 05/03/17 8:00 am Matt Schroeder MD [Partnered Physician] - 05/15/17 8:30 am Veda Cedeno, KULWANT [Physician Carboy Filler] - 04/11/17 8:00 am (& also Sunday, April 18, 2017 at 08:30 AM) Nikhil Felix DO [Primary Care Provider] - 04/12/17 1:30 pm (& also May at 11:15 AM) - Diet and Activity Activity: as per physical therapy, increase activity as tolerated Diet: diabetic diet, low fat, low cholesterol Hospital course: Ms. Mims is a 56 year old female with past medical history of diabetes, hypertension, anxiety, depression and coronary artery disease. She presents to ED with a femur fracture. Orthopedics has evaluated the patient. Patient underwent open reduction internal fixation of left distal periprosthetic femur fracture. She actually sustained a mechanical fall at home and landed on her knee. Patient did receive cardiac clearance prior to surgery. Patient tolerated procedure well. PT/OT has also evaluated patient. Patient was doing well postoperatively, but developed acute encephalopathy possibly due to hypercapnia and Pulmicort femur or due to IV. Medication use. She was given 1 dose of Lasix and also started DuoNeb breathing treatment. CT of the head was negative for any acute intracranial abnormality. Chest x-ray showed mild bilateral edema. ABG was also reviewed. Patient did well after her IV Lasix. She is currently doing well on room air. Her O2 sat is 92% on room air. She denies chest pain or shortness of breath. She is ambulating with assistance. She is tolerating oral diet well. No other acute events or complications during her stay. Patient and family have been explained about her condition plan of care in detail. They understood and agreed. No unanswered questions. Patient is being discharged to F in stable condition. Patient did receive 2 units PRBC and her H&H is currently stable. She will need to be on DVT prophylaxis with Lovenox. Patient has also been advised to continue incentive spirometry. She will need to continue all her regular home medications. Advised to return if symptoms worsen. Advised to follow-up with primary care physician and orthopedics as outpatient. - Time Spent with Patient Total time spent providing and/or coordinating discharge services: Greater than 30 minutes - Constitutional Vitals: Temp Pulse Resp BP Pulse Ox 98.2 F 75 16 142/83 993 04/06/17 09:19 04/06/17 09:19 04/06/17 09:19 04/06/17 09:19 04/06/17 09:19 General appearance: Present: cooperative, A&O X 3, pleasant, no acute distress, obese, answers questions appropriately - Head Head exam: Present: atraumatic - Eye Eye exam: Present: EOMI - ENT ENT exam: Present: mucous membranes moist - Respiratory Respiratory exam: Present: CTAB. Absent: chest wall tenderness, rales, rhonchi , wheezes, tachypnea - Cardiovascular Cardiovascular exam: Present: RRR, +S1, +S2 - GI/Abdominal GI/Abdominal exam: Present: soft. Absent: distended, firm, guarding, tenderness - Extremities Exam Extremities exam: Present: radial pulses palpable and symmetrical. Absent: calf tenderness, cyanotic, pedal edema Additional comments: Left lower extremity distal pulses palpable, brace in place - Neurological Exam Neurological exam: Present: alert, CN II-XII intact, oriented X3, no focal deficits. Absent: facial droop, speech deficit - VTE Documentation of Mechanical Device: Venous foot pump, device
--- NOTE | 2017-04-06 11:20 | Physician Discharge Referral ---
[facility] Referral Info Provider in Charge after Transfer: PCP Institutional Level of Care: Skilled - Diagnosis (1) Femur fracture, left Priority: Primary Status: Acute (2) Acute encephalopathy Priority: Primary Status: Acute (3) CAD (coronary artery disease) Priority: Secondary Status: Chronic (4) Hypertension Priority: Secondary Status: Chronic (5) Diabetes Priority: Secondary Status: Chronic Prognosis: Good Aware of Diagnosis: Patient, Family Aware of Prognosis: Patient, Family - Transfer Medications Prescriptions: Ipratropium/Albuterol Neb [Duoneb] 3 ml IH [id number] PRN #30 inhsol PRN Reason: Shortness Of Breath/Wheezing OxyCODONE/APAP 10/325 [Percocet 10/325 MG] 1 each PO Q6HR PRN #10 tablet PRN Reason: Pain Docusate [Colace] 100 mg PO BID PRN #14 capsule PRN Reason: Constipation Enoxaparin [Lovenox] 40 mg SQ DAILY 10 Days #10 syr Gabapentin [Neurontin] 600 mg PO TID #14 tablet Metoprolol [Lopressor] 25 mg PO BID #60 tablet Zolpidem [Ambien] 10 mg PO HS #7 tablet Home Medications: Citalopram [CeleXA] 20 mg PO QPM 01/05/15 [History] Ondansetron HCl [Zofran] 4 mg PO Q4-6H PRN 01/05/15 [History] Clopidogrel [Plavix] 75 mg PO QAM 02/19/15 [History] Tizanidine [Zanaflex] 4 mg PO Q8H PRN 02/19/15 [History] metFORMIN [Glucophage] 1,000 mg PO BIDWM 03/31/17 [History] Albuterol Sulfate [Proair Hfa] 2 puff IH Q4H PRN 04/01/17 [History] Aspirin Enteric Coated [Aspirin EC] 81 mg PO DAILY 04/01/17 [History] Exenatide Microspheres [Bydureon Pen] 2 mg SQ QWEEK 04/01/17 [History] Nitroglycerin [Nitrostat] 0.4 mg SL Q5M PRN 04/01/17 [History] Ranitidine HCl [Zantac] 150 mg PO HS 04/01/17 [History] Simvastatin [Zocor] 40 mg PO HS 04/01/17 [History] Docusate [Colace] 100 mg PO BID PRN #14 capsule 04/06/17 [Rx] Enoxaparin [Lovenox] 40 mg SQ DAILY 10 Days #10 syr 04/06/17 [Rx] Gabapentin [Neurontin] 600 mg PO TID #14 tablet 04/06/17 [Rx] Ipratropium/Albuterol Neb [Duoneb] 3 ml IH [id number] PRN #30 inhsol 04/06/17 [Rx] Metoprolol [Lopressor] 25 mg PO BID #60 tablet 04/06/17 [Rx] OxyCODONE/APAP 10/325 [Percocet 10/325 MG] 1 each PO Q6HR PRN #10 tablet [Rx] Zolpidem [Ambien] 10 mg PO HS #7 tablet 04/06/17 [Rx] Allergies/Adverse Reactions: 3 Allergy/AdvReac Type Severity Reaction Status Date / Time No Known Allergies Allergy Verified 04/01/17 01:33 EDT - Respiratory Orders Smoking Cessation: Smoking cessation has been advised. For more information, call the [place] [employer] Quit Line at 9-855-IOBY-NOW. - Lab Orders Lab Orders: CBC (In 3 days' time) - Ancillary Orders May use pressure relief devices daily prn - Advance Directives Code Status: Full Code - Mobility Orders Ambulate - Rehabiliation Orders Rehab Potential: Good Rehab Orders: Evaluation for Physical Therapy, Evaluation for Occupational Therapy - Treatments Skin tear care topically daily PRN per policy - Diet Orders Cardiac (Diabetic diet) CERTIFICATION: I certify that the transfer of the above named patient to an Extended Care Facility is necessary for the continuing treatment of the diagnosis listed. The above information is true and accurate reflection of patient's current condition. Confidential - Redisclosure prohibited without a patient's written consent.
[2017-04-06 14:37] VITALS: BP 101/65
== END 2017-04-06 18:11 | DRG 480 ==
LOC: 3NENU 20:16 → EMEROO 20:16 → 3NENU 22:20
PROVIDERS: ADMIT Internal Medicine; ATTEND Internal Medicine

== ENCOUNTER 2019-07-14 11:28 | Inpatient (IN) ==
[2019-07-14] MEDS ORDERED: Ondansetron 4 MG/2 ML VIAL IVP ONE (12:14)
[2019-07-14] MEDS ORDERED: Nitroglycerin 0.4 MG TAB.SUBL SL PRN (12:15)
[2019-07-14] MEDS ORDERED: Isovue-370 500 ML BOTTLE IVP ONE (12:17)
[2019-07-14 12:49] LABS: Basophils % 0.2 %; Eosinophils # 0.1 K/mcL (0.0-0.6); Eosinophils % 0.3 %; Hematocrit 36.6 % (35.3-44.9); Hemoglobin 11.8 g/dL (11.5-15.4); Lymphocytes # 0.7 K/mcL (0.6-4.6); Lymphocytes % 2.8 %; Mean Corpuscular HGB Conc 32.2 g/dL (31.6-35.5); Mean Corpuscular Hemoglobin 27.3 pg (28.0-33.3); Mean Corpuscular Volume 84.5 fL (83.0-100.0); Mean Platelet Volume 9.3 fL (9.4-12.4); Monocytes # 0.6 K/mcL (0.0-1.3); Monocytes % 2.4 %; Neutrophils # 24.1 K/mcL (1.6-8.9); Platelet Count 363 K/mcL (140-400); Red Blood Count 4.33 M/mcL (3.82-4.97); Red Cell Distribution Width 15.7 % (11.5-14.5); Segmented Neutrophils % 93.3 %; White Blood Count 25.8 K/mcL (4.3-11.1)
[2019-07-14 12:50] LABS: Basophils # 0.1 K/mcL (0.0-0.2)
[2019-07-14 12:56] LABS: INR 1.1; Prothrombin Time 12.6 Seconds (9.4-12.1)
[2019-07-14 12:59] LABS: Activated Partial Thrombo Time 31.9 Seconds (26.0-36.0)
[2019-07-14 13:10] LABS: BUN/Creatinine Ratio 17 (6-26); Blood Urea Nitrogen 13 mg/dL (6-20); Calcium 8.7 mg/dL (8.6-10.3); Carbon Dioxide 21 mEq/L (23-29); Chloride 102 mEq/L (98-107); Glucose 146 mg/dL (70-105); Osmolality,Calculated 281 (280-300); Potassium 4.1 mEq/L (3.5-5.1); Sodium 134 mEq/L (136-145); Troponin I < 0.03 ng/mL (< 0.04); eGFR For African Americans > 60 (> 60); eGFR For Non-African Americans > 60 (> 60)
[2019-07-14 13:14] LABS: Platelet Estimate Normal (Normal)
[2019-07-14] MEDS ORDERED: 0.9 % Sodium Chloride 1,000 ML IV ONE (13:22)
[2019-07-14] MEDS ORDERED: Azithromycin 500 MG in 0.9 % Sodium Chloride 250 ML IVPB ONE (13:43)
[2019-07-14] MEDS ORDERED: cefTRIAXone 1,000 MG in Water for inj. (sterile) 10 ML IVP ONE (13:43)
[2019-07-14] MEDS ORDERED: 0.9 % Sodium Chloride 500 ML IVC ONE (17:17)
[2019-07-14] MEDS ORDERED: Naloxone 0.4 MG/ML INJ IVP PRN (17:19)
[2019-07-14] MEDS ORDERED: Acetaminophen 325 MG TABLET PO PRN (17:19)
[2019-07-14] MEDS ORDERED: Dextrose Gel 15 GM/37.5 ML TUBE PO PRN ×2 (17:30)
[2019-07-14] MEDS ORDERED: D5% in Water 1,000 ML IVC PRN (17:30)
[2019-07-14] MEDS ORDERED: *HR* Dextrose 50 % in Water (Syg) 50 ML SYRINGE IVP PRN (17:30)
[2019-07-14] MEDS: 0.9 % Sodium Chloride 1,000 ML IVC SCH (20:00)
[2019-07-14] MEDS: Insulin LISPRO 300 UNITS/3 ML VIAL SQ SCH ×3 (20:21→22:21)
[2019-07-14] MEDS: Ondansetron ODT 4 MG TAB.RAPDIS SL PRN (20:31)
[2019-07-14] MEDS: Morphine Sulfate 2 MG/ML SYRINGE IVP PRN (20:31)
[2019-07-14] MEDS ORDERED: Metoprolol XL (24 HR) Succ 25 MG TAB.ER.24H PO SCH (21:00)
[2019-07-14] MEDS: Aspirin Enteric Coated 81 MG Tablet PO SCH (21:51)
[2019-07-14] MEDS: Gabapentin 400 MG CAPSULE PO SCH (21:51)
[2019-07-14] MEDS: Famotidine 20 MG TABLET PO SCH (21:51)
[2019-07-14] MEDS: *HR* Heparin 5,000 UNIT/ML VIAL SQ SCH (21:52)
[2019-07-14 23:23] LABS: Adenovirus Not Detected (Not Detect); Bordetella Pertussis Not Detected (Not Detect); Chlamydophila pneumoniae Not Detected (Not Detect); Coronavirus 229E Not Detected (Not Detect); Coronavirus HKU1 Not Detected (Not Detect); Coronavirus NL63 Not Detected (Not Detect); Coronavirus OC43 Not Detected (Not Detect); Human Metapneumovirus Not Detected (Not Detect); Human Rhinovirus/Enterovirus Not Detected (Not Detect); Influenza A Subtype 2009 H1 Not Detected (Not Detect); Influenza B Not Detected (Not Detect); Mycoplasma pneumoniae Not Detected (Not Detect); Parainfluenza Virus 1 Not Detected (Not Detect); Parainfluenza Virus 2 Not Detected (Not Detect); Parainfluenza Virus 3 Not Detected (Not Detect); Parainfluenza Virus 4 Not Detected (Not Detect); Respiratory Syncytial Virus Not Detected (Not Detect)
[2019-07-15 00:51] LABS: Basophils % 0.2 %; Eosinophils % 0.1 %; Hematocrit 32.7 % (35.3-44.9); Hemoglobin 10.5 g/dL (11.5-15.4); Immature Granulocytes % 0.5 % (0-4); Lymphocytes # 1.2 K/mcL (0.6-4.6); Lymphocytes % 6.2 %; Mean Corpuscular HGB Conc 32.1 g/dL (31.6-35.5); Mean Corpuscular Hemoglobin 27.5 pg (28.0-33.3); Mean Corpuscular Volume 85.6 fL (83.0-100.0); Mean Platelet Volume 9.3 fL (9.4-12.4); Monocytes # 0.7 K/mcL (0.0-1.3); Monocytes % 3.8 %; Neutrophils # 17.5 K/mcL (1.6-8.9); Platelet Count 350 K/mcL (140-400); Red Blood Count 3.82 M/mcL (3.82-4.97); Red Cell Distribution Width 16.1 % (11.5-14.5); Segmented Neutrophils % 89.2 %; White Blood Count 19.6 K/mcL (4.3-11.1)
[2019-07-15 01:15] LABS: BUN/Creatinine Ratio 17 (6-26); Blood Urea Nitrogen 11 mg/dL (6-20); Carbon Dioxide 20 mEq/L (23-29); Chloride 103 mEq/L (98-107); Glucose 178 mg/dL (70-105); Osmolality,Calculated 282 (280-300); Potassium 3.7 mEq/L (3.5-5.1); Sodium 134 mEq/L (136-145); eGFR For African Americans > 60 (> 60); eGFR For Non-African Americans > 60 (> 60)
[2019-07-15] MEDS: *HR* Heparin 5,000 UNIT/ML VIAL SQ SCH ×2 (05:50→17:33)
[2019-07-15] MEDS: Morphine Sulfate 2 MG/ML SYRINGE IVP PRN (05:51)
[2019-07-15] MEDS: 0.9 % Sodium Chloride 1,000 ML IVC SCH (05:51)
[2019-07-15] MEDS: Insulin LISPRO 300 UNITS/3 ML VIAL SQ SCH ×7 (06:00→21:26)
[2019-07-15] MEDS ORDERED: Nystatin Cream 15 GM TUBE TP PRN (08:03)
[2019-07-15] MEDS ORDERED: Regadenoson 0.4 MG/5 ML SYRINGE IVP ONE ×2 (08:25→09:16)
[2019-07-15] MEDS: Famotidine 20 MG TABLET PO SCH ×2 (11:16→19:55)
[2019-07-15] MEDS: Gabapentin 400 MG CAPSULE PO SCH ×3 (11:16→19:55)
[2019-07-15] MEDS: *HR* OxyCODONE/APAP 10/325 TABLET PO PRN (11:16)
[2019-07-15] MEDS: cefTRIAXone 1,000 MG in Water for inj. (sterile) 10 ML IVP SCH (11:17)
[2019-07-15] MEDS: Azithromycin 500 MG in 0.9 % Sodium Chloride 250 ML IVPB SCH (11:17)
[2019-07-15] MEDS: tiZANidine 4 MG TABLET PO PRN ×2 (11:24→20:03)
[2019-07-15 17:34] LABS: ABG Base Excess -2 mEq/L (-2 to 3); ABG HCO3 24 mEq/L (21-27); ABG Oxygen Saturation 95 % (95-98); ABG PCO2 42 mmHg (35-45); ABG PH 7.37 pH Units (7.32-7.45); ABG PO2 80 mmHg (85-104); ABG TCO2 25 mEq/L (20-26)
[2019-07-15] MEDS ORDERED: *HR* Heparin 5,000 UNIT/ML VIAL IVP PRN ×2 (17:53)
[2019-07-15] MEDS ORDERED: *HR* Heparin 5,000 UNIT/ML VIAL IVP ONE (17:53)
[2019-07-15] MEDS ORDERED: DilTIAZem 50 MG in 0.9 % Sodium Chloride 40 ML IVC SCH ×2 (18:00→18:50)
[2019-07-15] MEDS: Heparin 25,000 UNIT/250 ML D5W 25,000 UNIT/250 ML IV.SOLN IVC SCH (18:24)
[2019-07-15] MEDS: Cyanocobalamin (B-12) 1,000 MCG TABLET PO SCH (19:55)
[2019-07-15] MEDS: Metoprolol XL (24 HR) Succ 25 MG TAB.ER.24H PO SCH (19:55)
[2019-07-15] MEDS: Aspirin Enteric Coated 81 MG Tablet PO SCH (19:55)
[2019-07-16] MEDS: Insulin LISPRO 300 UNITS/3 ML VIAL SQ SCH ×7 (01:32→22:35)
[2019-07-16 01:49] LABS: Basophils % 0.2 %; Eosinophils # 0.1 K/mcL (0.0-0.6); Eosinophils % 0.6 %; Hematocrit 34.7 % (35.3-44.9); Hemoglobin 10.6 g/dL (11.5-15.4); Immature Granulocytes % 0.7 % (0-4); Immature Platelets 2.4 % (1.1-6.1); Lymphocytes # 1.4 K/mcL (0.6-4.6); Lymphocytes % 8.9 %; Mean Corpuscular HGB Conc 30.5 g/dL (31.6-35.5); Mean Corpuscular Hemoglobin 27.7 pg (28.0-33.3); Mean Corpuscular Volume 90.8 fL (83.0-100.0); Mean Platelet Volume 9.6 fL (9.4-12.4); Monocytes # 1.1 K/mcL (0.0-1.3); Monocytes % 6.6 %; Neutrophils # 13.3 K/mcL (1.6-8.9); Platelet Count 371 K/mcL (140-400); Red Blood Count 3.82 M/mcL (3.82-4.97); Red Cell Distribution Width 16.7 % (11.5-14.5)
[2019-07-16 02:03] LABS: Calcium 8.5 mg/dL (8.6-10.3); Potassium 4.5 mEq/L (3.5-5.1)
[2019-07-16] MEDS: Azithromycin 500 MG in 0.9 % Sodium Chloride 250 ML IVPB SCH (08:24)
[2019-07-16] MEDS: Famotidine 20 MG TABLET PO SCH ×2 (08:24→22:34)
[2019-07-16] MEDS: Gabapentin 400 MG CAPSULE PO SCH ×3 (08:24→22:34)
[2019-07-16] MEDS: cefTRIAXone 1,000 MG in Water for inj. (sterile) 10 ML IVP SCH (08:25)
[2019-07-16] MEDS: *HR* OxyCODONE/APAP 10/325 TABLET PO PRN ×2 (08:37→19:10)
[2019-07-16] MEDS: Heparin 25,000 UNIT/250 ML D5W 25,000 UNIT/250 ML IV.SOLN IVC SCH (11:04)
[2019-07-16] MEDS ORDERED: 0.9 % Sodium Chloride 1,000 ML IVC ONE (15:52)
[2019-07-16] MEDS: *HR* Enoxaparin 120 MG/0.8 ML SYRINGE SQ SCH (16:38)
[2019-07-16] MEDS ORDERED: *HR* Rivaroxaban 15 MG TABLET PO SCH (17:00)
[2019-07-16] MEDS: Aspirin Enteric Coated 81 MG Tablet PO SCH (22:34)
[2019-07-16] MEDS: Metoprolol XL (24 HR) Succ 25 MG TAB.ER.24H PO SCH (22:34)
[2019-07-16] MEDS: Cyanocobalamin (B-12) 1,000 MCG TABLET PO SCH (22:35)
[2019-07-17 01:48] LABS: Eosinophils % 4.2 %; Hematocrit 29.2 % (35.3-44.9); Immature Granulocytes % 0.4 % (0-4); Lymphocytes % 14.5 %; Mean Corpuscular HGB Conc 30.5 g/dL (31.6-35.5); Mean Corpuscular Hemoglobin 27.1 pg (28.0-33.3); Mean Platelet Volume 9.8 fL (9.4-12.4); Monocytes % 5.3 %; Platelet Count 308 K/mcL (140-400); Red Blood Count 3.28 M/mcL (3.82-4.97); Red Cell Distribution Width 16.3 % (11.5-14.5); Segmented Neutrophils % 75.4 %; White Blood Count 10.2 K/mcL (4.3-11.1)
[2019-07-17 01:49] LABS: Basophils % 0.2 %; Eosinophils # 0.4 K/mcL (0.0-0.6); Lymphocytes # 1.5 K/mcL (0.6-4.6); Monocytes # 0.5 K/mcL (0.0-1.3); Neutrophils # 7.7 K/mcL (1.6-8.9)
[2019-07-17 02:10] LABS: BUN/Creatinine Ratio 17 (6-26); Blood Urea Nitrogen 14 mg/dL (6-20); Calcium 8.5 mg/dL (8.6-10.3); Carbon Dioxide 23 mEq/L (23-29); Chloride 104 mEq/L (98-107); Glucose 145 mg/dL (70-105); Osmolality,Calculated 283 (280-300); Sodium 135 mEq/L (136-145); eGFR For African Americans > 60 (> 60); eGFR For Non-African Americans > 60 (> 60)
[2019-07-17 03:26] LABS: Hemoglobin 8.9 g/dL (11.5-15.4)
[2019-07-17] MEDS: Ondansetron ODT 4 MG TAB.RAPDIS SL PRN (05:13)
[2019-07-17] MEDS: *HR* Enoxaparin 120 MG/0.8 ML SYRINGE SQ SCH (05:13)
[2019-07-17] MEDS: Morphine Sulfate 2 MG/ML SYRINGE IVP PRN (05:18)
[2019-07-17 07:09] VITALS: BP 130/79
[2019-07-17] MEDS: cefTRIAXone 1,000 MG in Water for inj. (sterile) 10 ML IVP SCH (08:05)
[2019-07-17] MEDS: Famotidine 20 MG TABLET PO SCH (08:05)
[2019-07-17] MEDS: Azithromycin 500 MG in 0.9 % Sodium Chloride 250 ML IVPB SCH (08:05)
[2019-07-17] MEDS: Insulin LISPRO 300 UNITS/3 ML VIAL SQ SCH ×2 (08:06→12:15)
[2019-07-17] MEDS: Gabapentin 400 MG CAPSULE PO SCH (08:06)
[2019-07-17] MEDS ORDERED: Metoprolol XL (24 HR) Succ 50 MG TAB.ER.24H PO SCH (21:00)
== END 2019-07-17 12:19 | disposition home or self-care (01) | DRG 871 ==
LOC: EMEROOARM 11:28 → 3BNU 11:28 → SUATTDRO 14:58 → 3BNU 16:03
PROVIDERS: ADMIT Pharmacist; ATTEND Internal Medicine